=== PATIENT | female | born 1990 | race African-American/Black ===

== ENCOUNTER 2016-11-14 18:29 | Emergency (ER) | payer SELFPAY ==
[2016-11-14] MEDS ORDERED: Benzocaine 20% Topical Spray UD MUCMEM ONE (18:57)
[2016-11-14] MEDS ORDERED: Lidocaine 2% Viscous Solution 15 ML Cup PO ONE (18:57)
[2016-11-14] MEDS ORDERED: Ketorolac 60 MG/2 ML SDV IM ONE (18:58)
--- NOTE | 2016-11-14 19:04 | EDM.PDOC ---
ED HPI GENERAL MEDICAL PROBLEM - General Chief Complaint: General Stated Complaint: TOOTH ACHE Time Seen by Provider: 11/14/16 18:42 Source of Information: Reports: Patient History Limitations: Reports: No Limitations - History of Present Illness INITIAL COMMENTS - FREE TEXT/NARRATIVE: Presents reporting a left lower quadrant dental pain. The patient states that she has an impacted wisdom tooth. She has a dental appointment next week but she is having trouble biting down and chewing due to the pain. No fever or swelling. Left Lower Tooth/Teeth Pain Score (Numeric/FACES): 6 - Related Data Allergies Allergy/AdvReac Type Severity Reaction Status Date / Time No Known Allergies Allergy Verified 11/14/16 18:42 Home Meds: Home Meds . [No Known Home Meds] 11/14/16 [History] Past Medical History - Past Health History Medical/Surgical History: Denies Medical/Surgical History Respiratory History: Reports: Asthma Social & Family History - Family History Family Medical History: Noncontributory - Tobacco Use Smoking Status *Q: Never Smoker Years of Tobacco use: 5 Second Hand Smoke Exposure: No - Caffeine Use Caffeine Use: Reports: Coffee Other Caffeine Use: 1 cup per day - Alcohol Use Days Per Week of Alcohol Use: 1 Number of Drinks Per Day: 3 Total Drinks Per Week: 3 - Recreational Drug Use Recreational Drug Use: No Recreational Drug Type: Reports: Marijuana/Hashish Recreational Drug Use Frequency: Monthly ED ROS GENERAL - Review of Systems Review Of Systems: ROS reveals no pertinent complaints other than HPI. ED EXAM, GENERAL - Physical Exam Exam: See Below Exam Limited By: Uncooperative General Appearance: No Apparent Distress Ears: Normal External Exam Nose: Normal Inspection Throat/Mouth: Other (Pericoronitis tooth #15 or 16) Head: Atraumatic, Normocephalic Neck: Normal Inspection Respiratory/Chest: No Respiratory Distress, Lungs Clear, Normal Breath Sounds Cardiovascular: Normal Peripheral Pulses, Regular Rate, Rhythm, No Murmur GI/Abdominal: Soft Back Exam: Normal Inspection Extremities: Normal Inspection Neurological: Alert, Oriented Psychiatric: Normal Affect, Normal Mood Skin Exam: Warm, Dry, Intact, Normal Color, No Rash Lymphatic: No Adenopathy Course - Vital Signs Last Recorded V/S: Last Vital Signs Temp 36.7 C 11/14/16 18:49 Pulse 94 11/14/16 18:49 Resp 16 05/16/17 18:49 BP 129/89 11/14/16 18:49 Pulse Ox 96 11/14/16 18:49 - Orders/Labs/Meds Orders: Medication Orders Ketorolac Tromethamine (Toradol) 60 mg IM ONETIME ONE Stop: 11/14/16 18:59 Meds: Medications Generic Name Dose Route Start Last Admin Trade Name Freq PRN Reason Stop Dose Admin Ketorolac Tromethamine 60 mg 11/14/16 18:58 Toradol IM 11/14/16 18:59 ONETIME ONE Discontinued Medications Generic Name Dose Route Start Last Admin Trade Name Freq PRN Reason Stop Dose Admin Benzocaine 2 each 11/14/16 18:57 Hurricaine One 20% MUCMEM 11/14/16 18:58 ONETIME ONE Lidocaine HCl 15 ml 11/14/16 18:57 Xylocaine 2% Viscous PO 11/14/16 18:58 ONETIME ONE Departure - Departure Time of Disposition: 19:02 Disposition: Home, Self-Care 01 Condition: good Clinical Impression: Pericoronitis - Discharge Information Forms: ED Department Discharge Additional Instructions: 1. please followup with the dentist as previously scheduled next week 2. take antibiotics as directed 3. dental balls: Placed one ball over affected tooth, bite down and hold for 10 minutes every 2 hours. 4. Aleve 2 tabs a.m. and 2 tabs p.m. or ibuprofen 4-600 mg every 8 hours as needed for pain 5. Hale 5 mg every 4 hours as needed for pain no driving or operating machinery
[2016-11-14 20:12] VITALS: BP 125/80
== END 2016-11-14 19:24 | disposition home or self-care (01) ==
LOC: MW.ED 18:29
DX: K05.30 Chronic periodontitis, unspecified (principal); J45.909 Unspecified asthma, uncomplicated
CPT/HCPCS: 96372; 99283; A9270; J1885

== ENCOUNTER 2017-01-12 08:32 | Emergency (ER) | payer SELFPAY ==
[2017-01-12] MEDS ORDERED: Sodium Chloride 0.9% 1,000 ML IV ONE (08:44)
[2017-01-12] MEDS ORDERED: Ondansetron 4 MG/2 ML SDV IVPUSH ONE (08:44)
--- NOTE | 2017-01-12 08:47 | EDM.PDOC ---
ED HPI GENERAL MEDICAL PROBLEM - General Chief Complaint: Gastrointestinal Problem Stated Complaint: VOMITTING, PAIN IN STOMACH Time Seen by Provider: 01/12/17 08:44 - History of Present Illness INITIAL COMMENTS - FREE TEXT/NARRATIVE: HISTORY AND PHYSICAL: History of present illness: Patient 26-year-old black female presents concern of vomiting diarrhea 1 day she's had no fever no chills she denies abdominal pain denies urinary symptoms are basically for medical screening due to illness that prompted her to leave work. Review of systems: As per history of present illness and below otherwise all systems reviewed and negative. Past medical history: As per history of present illness and as reviewed below otherwise noncontributory. Surgical history: As per history of present illness and as reviewed below otherwise noncontributory. Social history: No reported history of drug or alcohol abuse. Family history: As per history of present illness and as reviewed below otherwise noncontributory. Physical exam: HEENT: Atraumatic, normocephalic, pupils reactive, negative for conjunctival pallor or scleral icterus, mucous membranes dry, throat clear, neck supple, nontender, trachea midline. Lungs: Clear to auscultation, breath sounds equal bilaterally, chest nontender. Heart: S1S2, regular, negative for clicks, rubs, or JVD. Abdomen: Soft, nondistended, nontender. Negative for masses or hepatosplenomegaly. Negative for costovertebral tenderness. Pelvis: Stable nontender. Genitourinary: Deferred. Rectal: Deferred. Extremities: Atraumatic, negative for cords or calf pain. Neurovascular unremarkable. Neuro: Awake, alert, oriented. Cranial nerves II through XII unremarkable. Cerebellum unremarkable. Motor and sensory unremarkable throughout. Exam nonfocal. Diagnostics: CBC CMP lipase hCG Therapeutics: Normal saline 1 L bolus Zofran 4 mg IV Impression: #1 gastroenteritis Definitive disposition and diagnosis as appropriate pending reevaluation and review of above. abdomen Pain Score (Numeric/FACES): 5 - Related Data Allergies Allergy/AdvReac Type Severity Reaction Status Date / Time No Known Allergies Allergy Verified 01/12/17 08:40 Home Meds: Home Meds . [No Known Home Meds] 11/14/16 [History] Past Medical History - Past Health History Medical/Surgical History: Denies Medical/Surgical History Respiratory History: Reports: Asthma Social & Family History - Family History Family Medical History: Noncontributory - Tobacco Use Smoking Status *Q: Never Smoker Years of Tobacco use: 5 Second Hand Smoke Exposure: No - Caffeine Use Caffeine Use: Reports: Coffee Other Caffeine Use: 1 cup per day - Alcohol Use Days Per Week of Alcohol Use: 1 Number of Drinks Per Day: 3 Total Drinks Per Week: 3 - Recreational Drug Use Recreational Drug Use: No Recreational Drug Type: Reports: Marijuana/Hashish Recreational Drug Use Frequency: Monthly ED ROS GENERAL - Review of Systems Review Of Systems: ROS reveals no pertinent complaints other than HPI. ED EXAM, GENERAL - Physical Exam Exam: See Below (See dictation) Course - Vital Signs Last Recorded V/S: Last Vital Signs Temp 36.5 C 01/12/17 08:40 Pulse 77 01/12/17 08:40 Resp 18 01/12/17 08:40 BP 138/88 01/12/17 08:40 Pulse Ox 98 01/12/17 08:40 - Orders/Labs/Meds Orders: Active Orders 24 hr Category Date Time Status CBC WITH AUTO DIFF [HEME] Stat Lab 01/12/17 08:44 Ordered Departure - Departure Time of Disposition: 08:46 Disposition: Home, Self-Care 01 Condition: Good Clinical Impression: Gastroenteritis - Discharge Information Forms: ED Department Discharge Additional Instructions: The following information is given to patients seen in the emergency department who are being discharged to home. This information is to outline your options for follow-up care. We provide all patients seen in our emergency department with a follow-up referral. The need for follow-up, as well as the timing and circumstances, are variable depending upon the specifics of your emergency department visit. If you don't have a primary care physician on staff, we will provide you with a referral. We always advise you to contact your personal physician following an emergency department visit to inform them of the circumstance of the visit and for follow-up with them and/or the need for any referrals to a consulting specialist. The emergency department will also refer you to a specialist when appropriate. This referral assures that you have the opportunity for followup care with a specialist. All of these measure are taken in an effort to provide you with optimal care, which includes your followup. Under all circumstances we always encourage you to contact your private physician who remains a resource for coordinating your care. When calling for followup care, please make the office aware that this follow-up is from your recent emergency room visit. If for any reason you are refused follow-up, please contact the [facility] emergency department at and asked to speak to the emergency department charge nurse. [facility] [place] [id number] Push fluids clear liquids as directed avoid dairy products 72 hours follow-up primary medical doctor and/or clinic 24-48 hours and return as needed as discussed - My Orders Last 24 Hours: My Active Orders 01/12/17 08:44 CBC WITH AUTO DIFF [HEME] Stat - Assessment/Plan Last 24 Hours: My Active Orders 01/12/17 08:44 CBC WITH AUTO DIFF [HEME] Stat
[2017-01-12 09:11] LABS: CHLORIDE,CL 107 mmol/L (98-110); SODIUM,NA 136 mmol/L (136-146)
[2017-01-12 10:16] VITALS: BP 115/45
== END 2017-01-12 10:16 | disposition home or self-care (01) ==
LOC: MW.ED 08:32
DX: K52.9 Noninfective gastroenteritis and colitis, unspecified (principal); J45.909 Unspecified asthma, uncomplicated
CPT/HCPCS: 80053; 81001; 83690; 84703; 85025; 96361; 96374; 99284; J2405; J7040; 99282

== ENCOUNTER 2017-04-27 09:56 | Emergency (ER) | payer MEDICAID ==
[2017-04-27] MEDS ORDERED: Albuterol 0.083% 2.5 MG/3 ML Neb Soln NEB ONE (10:07)
[2017-04-27] MEDS ORDERED: Sodium Chloride 0.9% 1,000 ML IV ONE (10:13)
--- NOTE | 2017-04-27 10:13 | EDM.PDOC ---
ED HPI GENERAL MEDICAL PROBLEM - General Chief Complaint: Chest Pain Stated Complaint: CHEST PAIN Time Seen by Provider: 04/27/17 10:00 Source of Information: Reports: Patient History Limitations: Reports: No Limitations - History of Present Illness INITIAL COMMENTS - FREE TEXT/NARRATIVE: History of present illness: [26-year-old female presenting with complaints of chest pain status post cough 1 week. Patient indicates that she has known asthma and that she feels she's been having a postnasal drip that is making her cough worse.] Review of systems: As per history of present illness and below otherwise all systems reviewed and negative. Past medical history: As per history of present illness and as reviewed below otherwise noncontributory. Surgical history: As per history of present illness and as reviewed below otherwise noncontributory. Social history: No reported history of drug or alcohol abuse. Family history: As per history of present illness and as reviewed below otherwise noncontributory. Physical exam: HEENT: Atraumatic, normocephalic, pupils reactive, negative for conjunctival pallor or scleral icterus, mucous membranes moist with slight oral pharyngeal erythema with juventino postnasal drainage noted, neck supple, nontender, trachea midline. Lungs: Clear to auscultation, breath sounds equal bilaterally, chest nontender. Heart: S1S2, regular, negative for clicks, rubs, or JVD. Abdomen: Soft, nondistended, nontender. Negative for masses or hepatosplenomegaly. Negative for costovertebral tenderness. Pelvis: Stable nontender. Genitourinary: Deferred. Rectal: Deferred. Extremities: Atraumatic, negative for cords or calf pain. Neurovascular unremarkable. Neuro: Awake, alert, oriented. Cranial nerves II through XII unremarkable. Cerebellum unremarkable. Motor and sensory unremarkable throughout. Exam nonfocal. Diagnostics: [Urine, hCG, CBC, CMP, chest x-ray] Therapeutics: [] Impression: [#1 asthma exacerbation acute on chronic #2 cough #3 costochondritis] Plan: [Medrol Dosepak, start for her inhaler, Z-Abner] Definitive disposition and diagnosis as appropriate pending reevaluation and review of above. Middle Chest Pain Score (Numeric/FACES): 5 - Related Data Allergies Allergy/AdvReac Type Severity Reaction Status Date / Time No Known Allergies Allergy Verified 04/27/17 10:00 Home Meds: Home Meds Albuterol Sulfate [Proair Respiclick] 90 mcg PO DAILY 04/27/17 [History] Azithromycin [IJD: Azithromycin] 250 mg PO DAILY #6 tab 04/27/17 [Rx] Budesonide/Formoterol Fumarate [Symbicort 160-4.5 Mcg Inhaler] 10.2 gm PO BID [History] Inhaler, Assist Devices [Space Chamber Plus] 1 each MC ASDIRECTED #1 spacer [Rx] methylPREDNISolone [Medrol] 4 mg PO DAILY #21 tab.ds.pk 04/27/17 [Rx] Past Medical History - Past Health History Medical/Surgical History: Denies Medical/Surgical History HEENT History: Reports: None Cardiovascular History: Reports: None Respiratory History: Reports: Asthma Gastrointestinal History: Reports: None Genitourinary History: Reports: None [employer] History: Reports: 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 History: Reports: None Neurological History: Reports: None Psychiatric History: Reports: None Endocrine/Metabolic History: Reports: None Hematologic History: Reports: None Immunologic History: Reports: None Oncologic (Cancer) History: Reports: None Dermatologic History: Reports: None - Infectious Disease History Infectious Disease History: Reports: Chicken Pox - Past Surgical History Head Surgeries/Procedures: Reports: None HEENT Surgical History: Reports: Adenoidectomy, Tonsillectomy Cardiovascular Surgical History: Reports: None Respiratory Surgical History: Reports: None GI Surgical History: Reports: None Female Surgical History: Reports: None Endocrine Surgical History: Reports: None 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 Surgical History: Reports: None Oncologic Surgical History: Reports: None Dermatological Surgical History: Reports: None Social & Family History - Family History Family Medical History: Noncontributory - Tobacco Use Smoking Status *Q: Never Smoker Years of Tobacco use: 5 Second Hand Smoke Exposure: No - Caffeine Use Caffeine Use: Reports: Coffee Other Caffeine Use: 1 cup per day - Alcohol Use Days Per Week of Alcohol Use: 1 Number of Drinks Per Day: 3 Total Drinks Per Week: 3 - Recreational Drug Use Recreational Drug Use: No Recreational Drug Type: Reports: Marijuana/Hashish Recreational Drug Use Frequency: Monthly ED ROS GENERAL - Review of Systems Review Of Systems: See Below (See history of present illness) ED EXAM, GENERAL - Physical Exam Exam: See Below (See history of present illness) Course - Vital Signs Last Recorded V/S: Last Vital Signs Temp 36.5 C 04/27/17 11:14 Pulse 83 04/27/17 11:14 Resp 18 04/27/17 11:14 BP 114/75 04/27/17 11:14 Pulse Ox 100 04/27/17 11:14 - Orders/Labs/Meds Orders: Active Orders 24 hr Category Date Time Status RT Aerosol Therapy [RC] ASDIRECTED Care 04/27/17 10:08 Active Labs: Laboratory Tests 04/27/17 04/27/17 04/27/17 Range/Units 10:12 10:12 10:30 WBC 8.78 (4.0-11.0) K/uL RBC 4.74 (4.30-5.90) M/uL Hgb 14.4 (12.0-16.0) g/dL Hct 41.8 (36.0-46.0) % MCV 88.2 (80.0-98.0) fL MCH 30.4 (27.0-32.0) pg MCHC 34.4 (31.0-37.0) g/dL RDW Std Deviation 41.8 (28.0-62.0) fl RDW Coeff of Amy 13 (11.0-15.0) % Plt Count 221 (150-400) K/uL MPV 8.90 (7.40-12.00) fL Neut % (Auto) 56.4 (48.0-80.0) % Lymph % (Auto) 32.0 (16.0-40.0) % Mellette % (Auto) 8.5 (0.0-15.0) % Eos % (Auto) 2.6 (0.0-7.0) % Baso % (Auto) 0.5 (0.0-1.5) % Neut # (Auto) 5.0 (1.4-5.7) K/uL Lymph # (Auto) 2.8 H (0.6-2.4) K/uL Mellette # (Auto) 0.8 (0.0-0.8) K/uL Eos # (Auto) 0.2 (0.0-0.7) K/uL Baso # (Auto) 0.0 (0.0-0.1) K/uL Nucleated RBC % 0.0 /100WBC Nucleated RBCs # 0 K/uL Sodium (136-146) mmol/L Potassium (3.5-5.1) mmol/L Chloride (98-110) mmol/L Carbon Dioxide (21-31) mmol/L BUN (6.0-23.0) mg/dL Creatinine (0.6-1.5) mg/dL Est Cr Clr Drug Dosing mL/min Estimated GFR (MDRD) ml/min Glucose (60-110) mg/dL Calcium (8.8-10.8) mg/dL Total Bilirubin (0.1-1.5) mg/dL AST (5-40) IU/L ALT (8-54) IU/L Alkaline Phosphatase (40-150) Total Protein (6.0-8.0) g/dL Albumin (3.5-5.0) g/dL Globulin (2.0-3.5) g/dL Albumin/Globulin Ratio (1.3-2.8) Urine Color YELLOW Urine Appearance CLEAR Urine pH 6.0 (5.0-8.0) Ur Specific [place] 1.025 (1.001-1.035) Urine Protein NEGATIVE (NEGATIVE) mg/dL Urine Glucose (UA) NEGATIVE (NEGATIVE) mg/dL Urine Ketones NEGATIVE (NEGATIVE) mg/dL Urine Occult Blood TRACE-LYSED (NEGATIVE) Urine Nitrite NEGATIVE (NEGATIVE) Urine Bilirubin NEGATIVE (NEGATIVE) Urine Urobilinogen 0.2 (<2.0) EU/dL Ur Leukocyte Esterase NEGATIVE (NEGATIVE) Urine RBC 1-3 (0-2/HPF) Urine WBC 0-1 (0-5/HPF) Ur Epithelial Cells OCCASIONAL (NONE-FEW) Urine Bacteria RARE (NEGATIVE) Urine Mucus MODERATE (NONE-MOD) Urine HCG, Qual NEGATIVE (NEGATIVE) 04/27/17 Range/Units 10:30 WBC (4.0-11.0) K/uL RBC (4.30-5.90) M/uL Hgb (12.0-16.0) g/dL Hct (36.0-46.0) % MCV (80.0-98.0) fL MCH (27.0-32.0) pg MCHC (31.0-37.0) g/dL RDW Std Deviation (28.0-62.0) fl RDW Coeff of Amy (11.0-15.0) % Plt Count (150-400) K/uL MPV (7.40-12.00) fL Neut % (Auto) (48.0-80.0) % Lymph % (Auto) (16.0-40.0) % Mellette % (Auto) (0.0-15.0) % Eos % (Auto) (0.0-7.0) % Baso % (Auto) (0.0-1.5) % Neut # (Auto) (1.4-5.7) K/uL Lymph # (Auto) (0.6-2.4) K/uL Mellette # (Auto) (0.0-0.8) K/uL Eos # (Auto) (0.0-0.7) K/uL Baso # (Auto) (0.0-0.1) K/uL Nucleated RBC % /100WBC Nucleated RBCs # K/uL Sodium 138 (136-146) mmol/L Potassium 4.0 (3.5-5.1) mmol/L Chloride 108 (98-110) mmol/L Carbon Dioxide 21 (21-31) mmol/L BUN 12 (6.0-23.0) mg/dL Creatinine 0.9 (0.6-1.5) mg/dL Est Cr Clr Drug Dosing 74.92 mL/min Estimated GFR (MDRD) > 60.0 ml/min Glucose 98 (60-110) mg/dL Calcium 9.4 (8.8-10.8) mg/dL Total Bilirubin 0.6 (0.1-1.5) mg/dL AST 15 (5-40) IU/L ALT 17 (8-54) IU/L Alkaline Phosphatase 57 (40-150) Total Protein 7.9 (6.0-8.0) g/dL Albumin 4.4 (3.5-5.0) g/dL Globulin 3.5 (2.0-3.5) g/dL Albumin/Globulin Ratio 1.3 (1.3-2.8) Urine Color Urine Appearance Urine pH (5.0-8.0) Ur Specific [place] (1.001-1.035) Urine Protein (NEGATIVE) mg/dL Urine Glucose (UA) (NEGATIVE) mg/dL Urine Ketones (NEGATIVE) mg/dL Urine Occult Blood (NEGATIVE) Urine Nitrite (NEGATIVE) Urine Bilirubin (NEGATIVE) Urine Urobilinogen (<2.0) EU/dL Ur Leukocyte Esterase (NEGATIVE) Urine RBC (0-2/HPF) Urine WBC (0-5/HPF) Ur Epithelial Cells (NONE-FEW) Urine Bacteria (NEGATIVE) Urine Mucus (NONE-MOD) Urine HCG, Qual (NEGATIVE) Meds: Medications Discontinued Medications Generic Name Dose Route Start Last Admin Trade Name Freq PRN Reason Stop Dose Admin Albuterol 2.5 mg 04/27/17 10:07 04/27/17 10:17 Proventil Neb Soln NEB 04/27/17 10:08 2.5 mg ONETIME ONE Administration Sodium Chloride 1,000 mls @ 999 mls/hr 04/27/17 10:13 04/27/17 10:47 Normal Saline IV 04/27/17 11:13 999 mls/hr STAT ONE Administration Departure - Departure Time of Disposition: 11:28 Disposition: Home, Self-Care 01 Condition: Good Clinical Impression: Costochondritis, Asthma Clinical Impression: (Ruled Out): Atypical chest pain - Discharge Information Prescriptions: Azithromycin [IJD: Azithromycin] 250 mg PO DAILY #6 tab Inhaler, Assist Devices [Space Chamber Plus] 1 each MC ASDIRECTED #1 spacer methylPREDNISolone [Medrol] 4 mg PO DAILY #21 tab.ds.pk Forms: ED Department Discharge Additional Instructions: The following information is given to patients seen in the emergency department who are being discharged to home. This information is to outline your options for follow-up care. We provide all patients seen in our emergency department with a follow-up referral. The need for follow-up, as well as the timing and circumstances, are variable depending upon the specifics of your emergency department visit. If you don't have a primary care physician on staff, we will provide you with a referral. We always advise you to contact your personal physician following an emergency department visit to inform them of the circumstance of the visit and for follow-up with them and/or the need for any referrals to a consulting specialist. The emergency department will also refer you to a specialist when appropriate. This referral assures that you have the opportunity for follow-up care with a specialist. All of these measure are taken in an effort to provide you with optimal care, which includes your follow-up. Under all circumstances we always encourage you to contact your private physician who remains a resource for coordinating your care. When calling for follow-up care, please make the office aware that this follow-up is from your recent emergency room visit. If for any reason you are refused follow-up, please contact the [facility] Emergency Department at and asked to speak to the emergency department charge nurse. Take medication as directed Follow-up with PCP 1-2 days and discussed the potential nebulizer Return to ED as needed as discussed - My Orders Last 24 Hours: My Active Orders 04/27/17 10:08 RT Aerosol Therapy [RC] ASDIRECTED - Assessment/Plan Last 24 Hours: My Active Orders 04/27/17 10:08 RT Aerosol Therapy [RC] ASDIRECTED
[2017-04-27 11:02] LABS: CHLORIDE,CL 108 mmol/L (98-110); SODIUM,NA 138 mmol/L (136-146)
--- NOTE | 2017-04-27 11:04 | CR ---
EXAMINATION: Two-view chest (PA and Lateral views). HISTORY: Cough. FINDINGS: The trachea is midline. The cardiomediastinal silhouette is within normal limits. No pulmonary infilt rates, effusions or pneumothorax. Osseous structures appear unremarkable. IMPRESSION: No acute cardiopulmonary process.
[2017-04-27 11:43] VITALS: BP 107/65
== END 2017-04-27 11:45 | disposition home or self-care (01) ==
LOC: MW.ED 09:56
DX: M94.0 Chondrocostal junction syndrome [Tietze] (principal); J45.901 Unspecified asthma with (acute) exacerbation; Z79.899 Other long term (current) drug therapy
CPT/HCPCS: 36415; 71020; 80053; 81001; 81025; 85025; 93005; 94640; 96360; 99285; J7040; 99283

== ENCOUNTER 2017-05-10 23:12 | Emergency (ER) | payer MEDICAID ==
[2017-05-10 23:22] VITALS: BP 123/74
== END 2017-05-10 23:39 | disposition left against medical advice (07) ==
LOC: MW.ED 23:12
DX: Z53.21 Procedure and treatment not carried out due to patient leaving prior to being seen by health care provider (principal)
CPT/HCPCS: 99283

== ENCOUNTER 2017-07-08 16:49 | Emergency (ER) | payer MEDICAID ==
[2017-07-08] MEDS ORDERED: Albuterol/Ipratropium 3.0-0.5 MG/3 ML Neb Soln NEB ONE (17:13)
--- NOTE | 2017-07-08 17:17 | EDM.PDOC ---
ED HPI GENERAL MEDICAL PROBLEM - General Chief Complaint: General Stated Complaint: COUGH,EARACHE Time Seen by Provider: 07/08/17 16:50 Source of Information: Reports: Patient History Limitations: Reports: No Limitations - History of Present Illness INITIAL COMMENTS - FREE TEXT/NARRATIVE: HISTORY AND PHYSICAL: History of present illness: Patient is a 26-year-old female who presents to the emergency room with complaints of cough, fever, sinus congestion and right ear pain 1 week. States she has a history of asthma and normally takes rescue inhaler for her symptoms, states she has been having to take it more frequently and has been using an over -the-counter allergy relief medication. She has not found any relief to his medications. Denies any chest pain, shortness of breath, abdominal pain, nausea, vomiting or diarrhea. Denies any chance of . Has not received the [id number] influenza vaccine. Review of systems: As per history of present illness and below otherwise all systems reviewed and negative. Past medical history: As per history of present illness and as reviewed below otherwise noncontributory. Surgical history: As per history of present illness and as reviewed below otherwise noncontributory. Social history: No reported history of drug or alcohol abuse. Family history: As per history of present illness and as reviewed below otherwise noncontributory. Physical exam: General: Well-developed and well-nourished 26-year-old -[place] female. Alert and oriented. Nontoxic appearing. HEENT: Atraumatic, normocephalic, pupils reactive, negative for conjunctival pallor or scleral icterus, mucous membranes moist, right tympanic membrane is erythematous with mucoid fluid noted behind the TM. Her throat is clear, neck supple, nontender, trachea midline. No drooling or trismus. No meningeal signs. Lungs: Clear to auscultation, breath sounds equal bilaterally, chest nontender.dry nonproductive cough, spastic Heart: S1S2, regular rate and rhythm, no overt murmurs Abdomen: Soft, nondistended, nontender. Negative for masses or hepatosplenomegaly. Negative for costovertebral tenderness. Pelvis: Stable nontender. Genitourinary: Deferred. Rectal: Deferred. Extremities: Atraumatic, negative for cords or calf pain. Neurovascular unremarkable. Neuro: Awake, alert, oriented. Cranial nerves II through XII unremarkable. Cerebellum unremarkable. Motor and sensory unremarkable throughout. Exam nonfocal. Negative influenza. Chest x-ray shows no pneumonia. Will prescribe the patient Augmentin for her ear infection. Medrol Dosepak for her increased cough due to her cold morbidity of asthma. If her symptoms Tylenol with codeine for her increased pain that she is experiencing with the ear pain and cough. Discussed the implications of using this medication. We discussed signs and symptoms that would prompt her to come back to the emergency room immediately. She voiced understanding and will follow up with primary care in the next 1-2 days. She denies any further questions at this time. Diagnostics: Influenza, chest x-ray Therapeutics: Deepali Impression: Otitis media, right Asthma exacerbation Plan: 1. Please take the Augmentin 1 tab twice daily 10 days. Please avoid putting anything in your ear such as Q-tips or fingers. Medrol Dosepak, a steroid, has been prescribed - please take as directed. Tylenol with codeine has been prescribed, this is a narcotic so do not take it when driving or needing to be functioning at work. 2. May continue to use your rescue inhaler as prescribed, along with your routine asthma medications as directed. 3. Follow up with her primary care provider in the next 1-2 days. Return to the ED as needed and as discussed. Definitive disposition and diagnosis as appropriate pending reevaluation and review of above. bilatteral ear Pain Score (Numeric/FACES): 8 - Related Data Allergies Allergy/AdvReac Type Severity Reaction Status Date / Time pineapple Allergy Swelling Verified 07/08/17 17:11 Home Meds: Home Meds Albuterol Sulfate [Proair Respiclick] 90 mcg PO DAILY 04/27/17 [History] Budesonide/Formoterol Fumarate [Symbicort 160-4.5 Mcg Inhaler] 10.2 gm PO BID [History] Cetirizine [ZyrTEC] 10 mg PO DAILY 05/10/17 [History] Fluticasone Propionate [Flonase Allergy Relief] 9.9 ml NS DAILY 05/10/17 [ History] Past Medical History - Past Health History Medical/Surgical History: Denies Medical/Surgical History HEENT History: Reports: None Cardiovascular History: Reports: None Respiratory History: Reports: Asthma Gastrointestinal History: Reports: None Genitourinary History: Reports: 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: 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 History: Reports: None Neurological History: Reports: None Psychiatric History: Reports: None Endocrine/Metabolic History: Reports: None Hematologic History: Reports: None Immunologic History: Reports: None Oncologic (Cancer) History: Reports: None Dermatologic History: Reports: None - Infectious Disease History Infectious Disease History: Reports: Chicken Pox - Past Surgical History Head Surgeries/Procedures: Reports: None HEENT Surgical History: Reports: Adenoidectomy, Tonsillectomy Cardiovascular Surgical History: Reports: None Respiratory Surgical History: Reports: None GI Surgical History: Reports: None Female Surgical History: Reports: None Endocrine Surgical History: Reports: None 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 Surgical History: Reports: None Oncologic Surgical History: Reports: None Dermatological Surgical History: Reports: None Social & Family History - Family History Family Medical History: Noncontributory - Tobacco Use Smoking Status *Q: Never Smoker Years of Tobacco use: 5 Second Hand Smoke Exposure: No - Caffeine Use Caffeine Use: Reports: Coffee, Soda Other Caffeine Use: 1 cup per day - Alcohol Use Days Per Week of Alcohol Use: 1 Number of Drinks Per Day: 3 Total Drinks Per Week: 3 - Recreational Drug Use Recreational Drug Use: No Recreational Drug Type: Reports: Marijuana/Hashish Recreational Drug Use Frequency: Monthly ED ROS GENERAL - Review of Systems Review Of Systems: ROS reveals no pertinent complaints other than HPI. ED EXAM, GENERAL - Physical Exam Exam: See Below (See dictation) Course - Vital Signs Last Recorded V/S: Last Vital Signs Temp 96.3 F 07/08/17 17:11 Pulse 91 07/08/17 17:11 Resp 18 07/08/17 17:11 BP 138/87 07/08/17 17:11 Pulse Ox 99 07/08/17 17:11 - Orders/Labs/Meds Orders: Active Orders 24 hr Category Date Time Status RT Aerosol Therapy [RC] ASDIRECTED Care 07/08/17 17:13 Active Chest 2V [CR] Stat Exams 07/08/17 17:13 Taken Meds: Medications Discontinued Medications Generic Name Dose Route Start Last Admin Trade Name Freq PRN Reason Stop Dose Admin Albuterol/Ipratropium 3 ml 07/08/17 17:13 07/08/17 17:33 Duoneb 3.0-0.5 Mg/3 Ml NEB 01/07/18 17:14 3 ml ONETIME ONE Administration Departure - Departure Time of Disposition: 18:31 Disposition: Home, Self-Care 01 Clinical Impression: Otitis media Qualifiers: Otitis media type: suppurative Chronicity: acute Laterality: right Recurrence: not specified as recurrent Spontaneous tympanic membrane rupture: without spontaneous rupture Qualified Code(s): H66.001 - Acute suppurative otitis media without spontaneous rupture of ear drum, right ear - Discharge Information Referrals: Da Valdes MD [Primary Care Provider] - Forms: ED Department Discharge Additional Instructions: My general discharge The following information is given to patients seen in the emergency department who are being discharged to home. This information is to outline your options for follow-up care. We provide all patients seen in our emergency department with a follow-up referral. The need for follow-up, as well as the timing and circumstances, are variable depending upon the specifics of your emergency department visit. If you don't have a primary care physician on staff, we will provide you with a referral. We always advise you to contact your personal physician following an emergency department visit to inform them of the circumstance of the visit and for follow-up with them and/or the need for any referrals to a consulting specialist. The emergency department will also refer you to a specialist when appropriate. This referral assures that you have the opportunity for follow-up care with a specialist. All of these measure are taken in an effort to provide you with optimal care, which includes your follow-up. Under all circumstances we always encourage you to contact your private physician who remains a resource for coordinating your care. When calling for follow-up care, please make the office aware that this follow-up is from your recent emergency room visit. If for any reason you are refused follow-up, please contact the [facility] Emergency Department at and asked to speak to the emergency department charge nurse. [facility] [address] [place] [id number] 1. Please take the Augmentin 1 tab twice daily 10 days. Please avoid putting anything in your ear such as Q-tips or fingers. Medrol Dosepak, a steroid, has been prescribed - please take as directed. Tylenol with codeine has been prescribed, this is a narcotic so do not take it when driving or needing to be functioning at work. 2. May continue to use your rescue inhaler as prescribed, along with your routine asthma medications as directed. 3. Follow up with her primary care provider in the next 1-2 days. Return to the ED as needed and as discussed. - My Orders Last 24 Hours: My Active Orders 07/08/17 17:13 RT Aerosol Therapy [RC] ASDIRECTED Chest 2V [CR] Stat - Assessment/Plan Last 24 Hours: My Active Orders 07/08/17 17:13 RT Aerosol Therapy [RC] ASDIRECTED Chest 2V [CR] Stat
[2017-07-08] MEDS ORDERED: Acetaminophen/Codeine 120-12 MG/5 ML Soln 5 ML UD Cup PO ONE (18:34)
[2017-07-08] MEDS ORDERED: Amoxicillin/Clavulanate K 875-125 MG Tab PO ONE (18:41)
[2017-07-08 19:25] VITALS: BP 107/78
--- NOTE | 2017-07-09 14:48 | CR ---
EXAM DATE: 07/08/17 PATIENT'S AGE: 26 Patient: BUSHRA FAUSTIN Facility: [place], [place] Site . Site : 1990 Study: XRay Chest [id number]/7/2018 5:59:12 PM Ordering Physician: Doctor Cobos Final Report: Clinical INDICATION: Pain. Shortness of breath. Comparison: 04/27/2017. Findings: The cardiomediastinal silhouette, lung parenchyma, pulmonary vasculature and pleural surfaces are all normal in appearance. The bony thorax appears intact. Impression : Negative study. Dictated by Edgar Moy MD @ Jul 08 2017 6:26PM (Electronic Signature) Report Signed by Proxy. CECELIA
== END 2017-07-08 19:09 | disposition home or self-care (01) ==
LOC: MW.ED 16:49
DX: H66.001 Acute suppurative otitis media without spontaneous rupture of ear drum, right ear (principal); J45.901 Unspecified asthma with (acute) exacerbation; Z79.899 Other long term (current) drug therapy
CPT/HCPCS: 71046; 87804; 94640; 99283; A9270; 99284

== ENCOUNTER 2017-08-24 17:58 | Emergency (ER) | payer MEDICAID ==
--- NOTE | 2017-08-24 18:13 | EDM.PDOC ---
ED HPI GENERAL MEDICAL PROBLEM - General Chief Complaint: Lower Extremity Injury/Pain Stated Complaint: PAIN LT ANKLE Time Seen by Provider: 08/24/17 18:10 Source of Information: Reports: Patient History Limitations: Reports: No Limitations - History of Present Illness INITIAL COMMENTS - FREE TEXT/NARRATIVE: HISTORY AND PHYSICAL: []26-year-old black female presenting with right ankle pain History of Present Illness: []Patient was carrying laundry down stairs, this morning at home, when she got to the landing, she rolled her right ankle and has had increasing pain. Patient did ice her ankle this morning when she rolled it did not take ibuprofen as it has been making her nauseous lately Review of Systems: As per history of present illness and below otherwise all systems reviewed and negative. Past medical history: As per history of present illness and as reviewed below otherwise noncontributory. Surgical history: As per history of present illness and as reviewed below otherwise noncontributory. Social history: No reported history of drug or alcohol abuse. Family history: As per history of present illness and as reviewed below otherwise noncontributory. Physical exam: Alert and oriented female answering questions appropriately. Has a good affect and good eye contact. No shortness of breath when speaking full sentences. HEENT: Atraumatic, normocehpalic, pupils reactive, negative for conjunctival pallor or scleral icterus, mucous membranes moist, throat clear, neck supple, nontender, trachea midline. Lungs: Clear to auscultation, breath sounds equal bilaterally, chest non tender. Heart: S1S2, regular, negative for clicks, rubs, or JVD. Abdomen: Soft, nondistended, nontender. Negative for masses or hepatossplenmegaly. Negative for costovertebral tenderness. Pelvis: Stable nontender. Genitourinary: Deferred. Rectal: Deferred Extremities: Right ankle lateral malleolus with edema and tenderness on palpation. Patient is able to flex and extend her foot but is significantly tender, negative for cords or calf pain. Neurovascular unremarkable. Neuro: Awake, alert, oriented. Cranial nerves II through XII unremarkable. Cerebellum unremarkable. Motor and sensory unremarkable throughout. Exam nonfocal. Patient is improved with the Bao wrap and crutches also Toradol Diagnostics: [X-ray right ankle] Therapeutics: [Bao wrap and crutches] Impression: [Sprain] Plan: [Discharged to home Elevate and ice Crutches for long periods of weightbearing] Definitive disposition and diagnosis as appropriate pending reevaluation and review of above. Onset: Today, Sudden Duration: Hour(s):, Getting Worse Location: Reports: Lower Extremity, Right Quality: Reports: Ache, Stabbing, Throbbing Severity: Moderate Improves with: Reports: None Worsens with: Reports: None Associated Symptoms: Reports: No Other Symptoms Right Ankle Pain Score (Numeric/FACES): 9 - Related Data Allergies Allergy/AdvReac Type Severity Reaction Status Date / Time pineapple Allergy Swelling Verified 08/24/17 18:15 Home Meds: Home Meds Albuterol Sulfate [Proair Respiclick] 90 mcg PO DAILY 04/27/17 [History] Budesonide/Formoterol Fumarate [Symbicort 160-4.5 Mcg Inhaler] 10.2 gm PO BID [History] Cetirizine [ZyrTEC] 10 mg PO DAILY 05/10/17 [History] Fluticasone Propionate [Flonase Allergy Relief] 9.9 ml NS DAILY 05/10/17 [ History] Past Medical History - Past Health History Medical/Surgical History: Denies Medical/Surgical History HEENT History: Reports: None Cardiovascular History: Reports: None Respiratory History: Reports: Asthma Gastrointestinal History: Reports: None Genitourinary History: Reports: 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: Reports: 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 Neurological History: Reports: None Psychiatric History: Reports: None Endocrine/Metabolic History: Reports: None Hematologic History: Reports: None Immunologic History: Reports: None Oncologic (Cancer) History: Reports: None Dermatologic History: Reports: None - Infectious Disease History Infectious Disease History: Reports: Chicken Pox - Past Surgical History Head Surgeries/Procedures: Reports: None HEENT Surgical History: Reports: Adenoidectomy, Tonsillectomy Cardiovascular Surgical History: Reports: None Respiratory Surgical History: Reports: None GI Surgical History: Reports: None Female Surgical History: Reports: None Endocrine Surgical History: Reports: None 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 Surgical History: Reports: None Oncologic Surgical History: Reports: None Dermatological Surgical History: Reports: None Social & Family History - Family History Family Medical History: Noncontributory - Tobacco Use Smoking Status *Q: Never Smoker Years of Tobacco use: 5 Second Hand Smoke Exposure: No - Caffeine Use Caffeine Use: Reports: Coffee, Soda Other Caffeine Use: 1 cup per day - Alcohol Use Days Per Week of Alcohol Use: 1 Number of Drinks Per Day: 3 Total Drinks Per Week: 3 - Recreational Drug Use Recreational Drug Use: No Recreational Drug Type: Reports: Marijuana/Hashish Recreational Drug Use Frequency: Monthly Review of Systems - Review of Systems Review Of Systems: ROS reveals no pertinent complaints other than HPI. ED EXAM, GENERAL - Physical Exam Exam: See Below (see dictation) Course - Vital Signs Last Recorded V/S: Last Vital Signs Temp 36.4 C 08/24/17 18:12 Pulse 81 08/24/17 18:12 Resp 18 08/24/17 18:12 BP 132/59 L 08/24/17 18:12 Pulse Ox 99 08/24/17 18:12 - Orders/Labs/Meds Orders: Active Orders 24 hr Category Date Time Status Ankle Min 3V Rt [CR] Stat Exams 08/24/17 18:10 Taken Meds: Medications Discontinued Medications Generic Name Dose Route Start Last Admin Trade Name Susan PRN Reason Stop Dose Admin Ketorolac Tromethamine 60 mg 08/24/17 18:15 08/24/17 18:45 Toradol IM 08/24/17 18:16 60 mg ONETIME ONE Administration Departure - Departure Time of Disposition: 18:58 Disposition: Home, Self-Care 01 Condition: Good Clinical Impression: Right ankle sprain Qualifiers: Encounter type: initial encounter Involved ligament of ankle: unspecified ligament Qualified Code(s): S93.401A - Sprain of unspecified ligament of right ankle, initial encounter - Discharge Information Instructions: Ankle Sprain Referrals: PCP,None [Primary Care Provider] - Forms: ED Department Discharge Additional Instructions: The following information is given to patients seen in the emergency department who are being discharged to home. This information is to outline your options for follow-up care. We provide all patients seen in our emergency department with a follow-up referral. The need for follow-up, as well as the timing and circumstances, are variable depending upon the specifics of your emergency department visit. If you don't have a primary care physician on staff, we will provide you with a referral. We always advise you to contact your personal physician following an emergency department visit to inform them of the circumstance of the visit and for follow-up with them and/or the need for any referrals to a consulting specialist. The emergency department will also refer you to a specialist when appropriate. This referral assures that you have the opportunity for followup care with a specialist. All of these measure are taken in an effort to provide you with optimal care, which includes your followup. Under all circumstances we always encourage you to contact your private physician who remains a resource for coordinating your care. When calling for followup care, please make the office aware that this follow-up is from your recent emergency room visit. If for any reason you are refused follow-up, please contact the [facility] emergency department at and asked to speak to the emergency department charge nurse. Found to have a sprained to your right ankle Use the Bao wrap and crutches while at work for the next several days Elevate and ice when you don't need to be on it - My Orders Last 24 Hours: My Active Orders 08/24/17 18:10 Ankle Min 3V Rt [CR] Stat - Assessment/Plan Last 24 Hours: My Active Orders 08/24/17 18:10 Ankle Min 3V Rt [CR] Stat
[2017-08-24] MEDS ORDERED: Ketorolac 60 MG/2 ML SDV IM ONE (18:15)
[2017-08-24 19:17] VITALS: BP 117/62
--- NOTE | 2017-08-27 08:48 | CR ---
EXAM DATE: 08/24/17 PATIENT'S AGE: 26 Patient: BUSHRA FAUSTIN Facility: [place], [place] Site . Site : 1990 Study: XRay Extremity Right ANKLE [id number]/23/2018 6:27:04 PM Ordering Physician: Doctor Cobos Final Report: INDICATION: Trauma right ankle; pain. TECHNIQUE: Three view study right ankle. FINDINGS: Soft tissue swelling overlying the lateral malleolus. No evidence of fracture or dislocation. Tibiotalar articulation is unremarkable. IMPRESSION: 1. Soft tissue swelling overlying the lateral malleolus. 2. No evidence of fracture. Dictated by Pee Harrington MD @ Aug 24 2017 6:38PM (Electronic Signature) Report Signed by Proxy. CECELIA
== END 2017-08-24 19:13 | disposition home or self-care (01) ==
LOC: MW.ED 17:58
DX: S93.401A Sprain of unspecified ligament of right ankle, initial encounter (principal); J45.909 Unspecified asthma, uncomplicated; Z72.0 Tobacco use; Z79.899 Other long term (current) drug therapy; Z79.51 Long term (current) use of inhaled steroids; Z91.018 Allergy to other foods; X50.9XXA Other and unspecified overexertion or strenuous movements or postures, initial encounter; Y92.009 Unspecified place in unspecified non-institutional (private) residence as the place of occurrence of the external cause
CPT/HCPCS: 73610; 96372; 99283; J1885

== ENCOUNTER 2017-09-18 08:24 | Emergency (ER) | payer MEDICAID ==
[2017-09-18] MEDS ORDERED: Ondansetron 4 MG/2 ML SDV IVPUSH ONE (08:33)
--- NOTE | 2017-09-18 08:34 | EDM.PDOC ---
ED HPI GENERAL MEDICAL PROBLEM - General Chief Complaint: Gastrointestinal Problem Stated Complaint: VOMITTING Time Seen by Provider: 09/18/17 08:34 Source of Information: Reports: Patient - History of Present Illness INITIAL COMMENTS - FREE TEXT/NARRATIVE: HISTORY AND PHYSICAL: History of present illness: [Patient presents with one episode of vomiting and several loose stools last night during the night she has also had cough she states cough led to the vomiting episode Currently no fever chills sweats no chest pain shortness breath headache dizziness palpitation no urine symptoms Hematuria noted on lab patient is currently menstruating ] Review of systems: As per history of present illness and below otherwise all systems reviewed and negative. Past medical history: As per history of present illness and as reviewed below otherwise noncontributory. Surgical history: As per history of present illness and as reviewed below otherwise noncontributory. Social history: No reported history of drug or alcohol abuse. Family history: As per history of present illness and as reviewed below otherwise noncontributory. Physical exam: HEENT: Atraumatic, normocephalic, pupils reactive, negative for conjunctival pallor or scleral icterus, mucous membranes moist, throat clear, neck supple, nontender, trachea midline. Lungs: Clear to auscultation, breath sounds equal bilaterally, chest nontender. Heart: S1S2, regular, negative for clicks, rubs, or JVD. Abdomen: Soft, nondistended, nontender. Negative for masses or hepatosplenomegaly. Negative for costovertebral tenderness. Pelvis: Stable nontender. Genitourinary: Deferred. Rectal: Deferred. Extremities: Atraumatic, negative for cords or calf pain. Neurovascular unremarkable. Neuro: Awake, alert, oriented. Cranial nerves II through XII unremarkable. Cerebellum unremarkable. Motor and sensory unremarkable throughout. Exam nonfocal. Diagnostics: [CBC CMP UA hCG lipase Chest abdomen flat and upright ] Therapeutics: [LR 1 L Zofran 8 mg IV] Impression: Gastroenteritis Definitive disposition and diagnosis as appropriate pending reevaluation and review of above. - Related Data Allergies Allergy/AdvReac Type Severity Reaction Status Date / Time pineapple Allergy Swelling Verified 08/24/17 18:15 Home Meds: Home Meds Albuterol Sulfate [Proair Respiclick] 90 mcg PO ASDIRECTED 04/27/17 [History] Budesonide/Formoterol Fumarate [Symbicort 160-4.5 Mcg Inhaler] 10.2 gm PO BID [History] Fluticasone Propionate [Flonase Allergy Relief] 9.9 ml NS DAILY 05/10/17 [ History] Loratadine [Claritin] 10 mg PO DAILY 09/18/17 [History] Past Medical History - Past Health History Medical/Surgical History: Denies Medical/Surgical History HEENT History: Reports: None Cardiovascular History: Reports: None Respiratory History: Reports: Asthma Gastrointestinal History: Reports: None Genitourinary History: Reports: None 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: 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 History: Reports: None Neurological History: Reports: None Psychiatric History: Reports: None Endocrine/Metabolic History: Reports: None Hematologic History: Reports: None Immunologic History: Reports: None Oncologic (Cancer) History: Reports: None Dermatologic History: Reports: None - Infectious Disease History Infectious Disease History: Reports: Chicken Pox - Past Surgical History Head Surgeries/Procedures: Reports: None HEENT Surgical History: Reports: Adenoidectomy, Tonsillectomy Cardiovascular Surgical History: Reports: None Respiratory Surgical History: Reports: None GI Surgical History: Reports: None Female Surgical History: Reports: None Endocrine Surgical History: Reports: None 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 Surgical History: Reports: None Oncologic Surgical History: Reports: None Dermatological Surgical History: Reports: None Social & Family History - Family History Family Medical History: Noncontributory - Tobacco Use Smoking Status *Q: Never Smoker Years of Tobacco use: 5 Packs/Tins Daily: 0.1 Second Hand Smoke Exposure: No - Caffeine Use Caffeine Use: Reports: Coffee, Soda Other Caffeine Use: 1 cup per day - Alcohol Use Days Per Week of Alcohol Use: 1 Number of Drinks Per Day: 3 Total Drinks Per Week: 3 - Recreational Drug Use Recreational Drug Use: No Recreational Drug Type: Reports: Marijuana/Hashish Recreational Drug Use Frequency: Monthly ED ROS GENERAL - Review of Systems Review Of Systems: ROS reveals no pertinent complaints other than HPI. ED EXAM, GENERAL - Physical Exam Exam: See Below Course - Vital Signs Last Recorded V/S: Last Vital Signs Temp 98.3 F 09/18/17 08:59 Pulse 67 09/18/17 08:59 Resp 18 09/18/17 08:59 BP 102/58 L 09/18/17 08:59 Pulse Ox 100 09/18/17 08:59 - Orders/Labs/Meds Orders: Active Orders 24 hr Category Date Time Status CULTURE URINE [RM] Stat Lab 09/18/17 08:32 Received Lactated Ringers [Ringers, Lactated] 1,000 ml Med 09/18/17 08:45 Active IV ASDIRECTED Medication Orders Lactated Ringer's (Ringers, Lactated) 1,000 mls @ 999 mls/hr IV ASDIRECTED LISANDRO Last Admin: 09/18/17 08:54 Dose: 999 mls/hr Labs: Laboratory Tests 09/18/17 09/18/17 09/18/17 Range/Units 08:32 08:40 08:40 WBC 8.07 (4.0-11.0) K/uL RBC 4.81 (4.30-5.90) M/uL Hgb 14.6 (12.0-16.0) g/dL Hct 42.0 (36.0-46.0) % MCV 87.3 (80.0-98.0) fL MCH 30.4 (27.0-32.0) pg MCHC 34.8 (31.0-37.0) g/dL RDW Std Deviation 40.3 (28.0-62.0) fl RDW Coeff of Amy 12 (11.0-15.0) % Plt Count 202 (150-400) K/uL MPV 8.70 (7.40-12.00) fL Neut % (Auto) 88.3 H (48.0-80.0) % Lymph % (Auto) 6.4 L (16.0-40.0) % Cooper % (Auto) 4.7 (0.0-15.0) % Eos % (Auto) 0.5 (0.0-7.0) % Baso % (Auto) 0.1 (0.0-1.5) % Neut # (Auto) 7.1 H (1.4-5.7) K/uL Lymph # (Auto) 0.5 L (0.6-2.4) K/uL Cooper # (Auto) 0.4 (0.0-0.8) K/uL Eos # (Auto) 0.0 (0.0-0.7) K/uL Baso # (Auto) 0.0 (0.0-0.1) K/uL Nucleated RBC % 0.0 /100WBC Nucleated RBCs # 0 K/uL Sodium 141 (136-145) mmol/L Potassium 3.8 (3.5-5.1) mmol/L Chloride 106 (98-107) mmol/L Carbon Dioxide 24.7 (21.0-32.0) mmol/L BUN 12 (7.0-18.0) mg/dL Creatinine 0.9 (0.6-1.0) mg/dL Est Cr Clr Drug Dosing 74.92 mL/min Estimated GFR (MDRD) > 60.0 ml/min Glucose 97 (74-106) mg/dL Calcium 8.5 (8.5-10.1) mg/dL Total Bilirubin 0.8 (0.2-1.0) mg/dL AST 14 L (15-37) IU/L ALT 18 (14-63) IU/L Alkaline Phosphatase 45 L (46-116) U/L Total Protein 7.2 (6.4-8.2) g/dL Albumin 3.9 (3.4-5.0) g/dL Globulin 3.3 (2.0-3.5) g/dL Albumin/Globulin Ratio 1.2 L (1.3-2.8) Urine Color YELLOW Urine Appearance CLEAR Urine pH 8.0 (5.0-8.0) Ur Specific [place] 1.015 (1.001-1.035) Urine Protein TRACE (NEGATIVE) mg/dL Urine Glucose (UA) NEGATIVE (NEGATIVE) mg/dL Urine Ketones NEGATIVE (NEGATIVE) mg/dL Urine Occult Blood LARGE H (NEGATIVE) Urine Nitrite NEGATIVE (NEGATIVE) Urine Bilirubin NEGATIVE (NEGATIVE) Urine Urobilinogen 0.2 (<2.0) EU/dL Ur Leukocyte Esterase NEGATIVE (NEGATIVE) Urine RBC 10-12 (0-2/HPF) Urine WBC 0-1 (0-5/HPF) Ur Epithelial Cells RARE (NONE-FEW) Urine Bacteria FEW (NEGATIVE) Urine Mucus LIGHT (NONE-MOD) Urine HCG, Qual (NEGATIVE) 09/18/17 Range/Units 09:00 WBC (4.0-11.0) K/uL RBC (4.30-5.90) M/uL Hgb (12.0-16.0) g/dL Hct (36.0-46.0) % MCV (80.0-98.0) fL MCH (27.0-32.0) pg MCHC (31.0-37.0) g/dL RDW Std Deviation (28.0-62.0) fl RDW Coeff of Amy (11.0-15.0) % Plt Count (150-400) K/uL MPV (7.40-12.00) fL Neut % (Auto) (48.0-80.0) % Lymph % (Auto) (16.0-40.0) % Cooper % (Auto) (0.0-15.0) % Eos % (Auto) (0.0-7.0) % Baso % (Auto) (0.0-1.5) % Neut # (Auto) (1.4-5.7) K/uL Lymph # (Auto) (0.6-2.4) K/uL Cooper # (Auto) (0.0-0.8) K/uL Eos # (Auto) (0.0-0.7) K/uL Baso # (Auto) (0.0-0.1) K/uL Nucleated RBC % /100WBC Nucleated RBCs # K/uL Sodium (136-145) mmol/L Potassium (3.5-5.1) mmol/L Chloride (98-107) mmol/L Carbon Dioxide (21.0-32.0) mmol/L BUN (7.0-18.0) mg/dL Creatinine (0.6-1.0) mg/dL Est Cr Clr Drug Dosing mL/min Estimated GFR (MDRD) ml/min Glucose (74-106) mg/dL Calcium (8.5-10.1) mg/dL Total Bilirubin (0.2-1.0) mg/dL AST (15-37) IU/L ALT (14-63) IU/L Alkaline Phosphatase (46-116) U/L Total Protein (6.4-8.2) g/dL Albumin (3.4-5.0) g/dL Globulin (2.0-3.5) g/dL Albumin/Globulin Ratio (1.3-2.8) Urine Color Urine Appearance Urine pH (5.0-8.0) Ur Specific [place] (1.001-1.035) Urine Protein (NEGATIVE) mg/dL Urine Glucose (UA) (NEGATIVE) mg/dL Urine Ketones (NEGATIVE) mg/dL Urine Occult Blood (NEGATIVE) Urine Nitrite (NEGATIVE) Urine Bilirubin (NEGATIVE) Urine Urobilinogen (<2.0) EU/dL Ur Leukocyte Esterase (NEGATIVE) Urine RBC (0-2/HPF) Urine WBC (0-5/HPF) Ur Epithelial Cells (NONE-FEW) Urine Bacteria (NEGATIVE) Urine Mucus (NONE-MOD) Urine HCG, Qual NEGATIVE (NEGATIVE) Meds: Medications Generic Name Dose Route Start Last Admin Trade Name Freq PRN Reason Stop Dose Admin Lactated Ringer's 1,000 mls @ 999 mls/hr 09/18/17 08:45 09/18/17 08:54 Ringers, Lactated IV 999 mls/hr ASDIRECTED LISANDRO Administration Discontinued Medications Generic Name Dose Route Start Last Admin Trade Name Freq PRN Reason Stop Dose Admin Ondansetron HCl 8 mg 09/18/17 08:33 09/18/17 08:53 Zofran IVPUSH 09/18/17 08:34 8 mg ONETIME ONE Administration Departure - Departure Time of Disposition: 10:45 Disposition: Home, Self-Care 01 Condition: Good Clinical Impression: Gastroenteritis - Discharge Information Referrals: PCP,None [Primary Care Provider] - Forms: ED Department Discharge Additional Instructions: The following information is given to patients seen in the emergency department who are being discharged to home. This information is to outline your options for follow-up care. We provide all patients seen in our emergency department with a follow-up referral. The need for follow-up, as well as the timing and circumstances, are variable depending upon the specifics of your emergency department visit. If you don't have a primary care physician on staff, we will provide you with a referral. We always advise you to contact your personal physician following an emergency department visit to inform them of the circumstance of the visit and for follow-up with them and/or the need for any referrals to a consulting specialist. The emergency department will also refer you to a specialist when appropriate. This referral assures that you have the opportunity for follow-up care with a specialist. All of these measure are taken in an effort to provide you with optimal care, which includes your follow-up. Under all circumstances we always encourage you to contact your private physician who remains a resource for coordinating your care. When calling for follow-up care, please make the office aware that this follow-up is from your recent emergency room visit. If for any reason you are refused follow-up, please contact the [facility] emergency department at and asked to speak to the emergency department charge nurse. - My Orders Last 24 Hours: My Active Orders 09/18/17 08:32 CULTURE URINE [RM] Stat 09/18/17 08:45 Lactated Ringers [Ringers, Lactated] 1,000 ml IV ASDIRECTED - Assessment/Plan Last 24 Hours: My Active Orders 09/18/17 08:32 CULTURE URINE [RM] Stat 09/18/17 08:45 Lactated Ringers [Ringers, Lactated] 1,000 ml IV ASDIRECTED
[2017-09-18] MEDS ORDERED: Lactated Ringers 1,000 ML IV SCH (08:45)
[2017-09-18 09:12] LABS: CHLORIDE,CL 106 mmol/L (98-107); SODIUM,NA 141 mmol/L (136-145)
--- NOTE | 2017-09-18 10:36 | CR ---
EXAMINATION: PA chest and abdomen HISTORY: Pain. FINDINGS: The trachea is midline. The cardiomediastinal silhouette is within normal limits. No pulmonary infilt rates, effusions or pneumothorax. Osseous structures appear unremarkable. There is no free air under the diaphragm. There is a nonobstructive bowel gas pattern. No organomegal y or abnormal calcifications. IMPRESSION: 1. No acute cardiopulmonary process. 2. Unremarkable abdomen.
[2017-09-18 10:57] VITALS: BP 102/68
== END 2017-09-18 10:58 | disposition home or self-care (01) ==
LOC: MW.ED 08:24
DX: K52.9 Noninfective gastroenteritis and colitis, unspecified (principal); J45.909 Unspecified asthma, uncomplicated; Z79.899 Other long term (current) drug therapy
CPT/HCPCS: 36415; 74022; 80053; 81001; 81025; 85025; 87086; 96361; 96374; 99283; J2405; J7120

== ENCOUNTER 2017-10-26 08:56 | Emergency (ER) | payer MEDICAID ==
[2017-10-26 09:19] VITALS: BP 125/91
--- NOTE | 2017-10-26 09:22 | EDM.PDOC ---
ED HPI GENERAL MEDICAL PROBLEM - General Chief Complaint: Lower Extremity Injury/Pain Stated Complaint: RT ANKLE HURTS AND VOMITING Time Seen by Provider: 10/26/17 09:08 - History of Present Illness INITIAL COMMENTS - FREE TEXT/NARRATIVE: HISTORY AND PHYSICAL: History of present illness: Patient is a healthy 27-year-old female who presents from urgent care after she presented for reevaluation of her right ankle for which she was diagnosed with a sprain and is wearing a cam boot, and while she was there she had an episode of vomiting so they thought that she should be evaluated. The patient is not sure why she vomited but she says she feels completely back to normal now and has no nausea no abdominal complaints and denies as she just finished her period. The patient said that she is using ibuprofen for pain and she has had persistent pain but she admits she has been intermittently weightbearing and not using the crutches at all times. She does have a follow-up appointment with orthopedics and is only here at the advice of the urgent care provider. She says that she has no other new complaints or issues. The patient says that she has not had any new trauma or injury to the ankle since her last x-ray at urgent care. Review of systems: As per history of present illness and below otherwise all systems reviewed and negative. Past medical history: As per history of present illness and as reviewed below otherwise noncontributory. Surgical history: As per history of present illness and as reviewed below otherwise noncontributory. Social history: No reported history of drug or alcohol abuse. Family history: As per history of present illness and as reviewed below otherwise noncontributory. Physical exam: HEENT: Atraumatic, normocephalic, negative for conjunctival pallor or scleral icterus, mucous membranes moist, throat clear, neck supple, nontender, trachea midline. Lungs: Clear to auscultation, breath sounds equal bilaterally, chest nontender. Heart: S1S2, regular rate and rhythm no overt murmurs. Abdomen: Soft, nondistended, nontender. NABS Pelvis: Stable nontender. Genitourinary: Deferred. Rectal: Deferred. Extremities: Atraumatic, negative for cords or calf pain. Neurovascular unremarkable. At the right ankle there is some mild tenderness to palpation of the medial and lateral malleoli or areas without any defects deformities ecchymosis erythema warmth or malalignment. There is no crepitus and there are no deformities appreciated in the foot ankle or distal. All other trauma and does have full range of motion. The patient has an ortho boot. Neuro: Awake, alert, oriented. Cranial nerves II through XII unremarkable. Cerebellum unremarkable. Motor and sensory unremarkable throughout. Exam nonfocal. Diagnostics: [] Therapeutics: [] The patient states that she does not feel nauseated and does not want any evaluation for the episode of vomiting but is concerned about the pain. She says she has not had any new trauma since her last evaluation at urgent care and does not feel an x-ray of the ankle is indicated. I will give her a few tramadol to use just as needed and have again stressed the need for no weightbearing Impression: Episode of vomiting prior to admission, resolved, ankle reevaluation Definitive disposition and diagnosis as appropriate pending reevaluation and review of above. - Related Data Allergies Allergy/AdvReac Type Severity Reaction Status Date / Time pineapple Allergy Swelling Verified 08/24/17 18:15 Home Meds: Home Meds Albuterol Sulfate [Proair Respiclick] 90 mcg PO ASDIRECTED 04/27/17 [History] Budesonide/Formoterol Fumarate [Symbicort 160-4.5 Mcg Inhaler] 10.2 gm PO BID [History] Fluticasone Propionate [Flonase Allergy Relief] 9.9 ml NS DAILY 05/10/17 [ History] Loratadine [Claritin] 10 mg PO DAILY 09/18/17 [History] Past Medical History - Past Health History Medical/Surgical History: Denies Medical/Surgical History HEENT History: Reports: None Cardiovascular History: Reports: None Respiratory History: Reports: Asthma Gastrointestinal History: Reports: None Genitourinary History: Reports: None [employer]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: 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 History: Reports: None Neurological History: Reports: None Psychiatric History: Reports: None Endocrine/Metabolic History: Reports: None Hematologic History: Reports: None Immunologic History: Reports: None Oncologic (Cancer) History: Reports: None Dermatologic History: Reports: None - Infectious Disease History Infectious Disease History: Reports: Chicken Pox - Past Surgical History Head Surgeries/Procedures: Reports: None HEENT Surgical History: Reports: Adenoidectomy, Tonsillectomy Cardiovascular Surgical History: Reports: None Respiratory Surgical History: Reports: None GI Surgical History: Reports: None Female Surgical History: Reports: None Endocrine Surgical History: Reports: None 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 Surgical History: Reports: None Oncologic Surgical History: Reports: None Dermatological Surgical History: Reports: None Social & Family History - Family History Family Medical History: Noncontributory - Tobacco Use Smoking Status *Q: Never Smoker Years of Tobacco use: 5 Packs/Tins Daily: 0.1 Used Tobacco, but Quit: Yes Month/Year Tobacco Last Used: 07/2015 Second Hand Smoke Exposure: No - Caffeine Use Caffeine Use: Reports: Coffee, Soda Other Caffeine Use: 1 cup per day - Alcohol Use Days Per Week of Alcohol Use: 1 Number of Drinks Per Day: 3 Total Drinks Per Week: 3 - Recreational Drug Use Recreational Drug Use: No Recreational Drug Type: Reports: Marijuana/Hashish Recreational Drug Use Frequency: Monthly Review of Systems - Review of Systems Review Of Systems: ROS reveals no pertinent complaints other than HPI. ED EXAM, GENERAL - Physical Exam Exam: See Below (See dictation) Departure - Departure Time of Disposition: 09:21 Disposition: Home, Self-Care 01 Condition: Good Clinical Impression: Vomiting - Discharge Information Referrals: PCP,None [Primary Care Provider] - Additional Instructions: The following information is given to patients seen in the emergency department who are being discharged to home. This information is to outline your options for follow-up care. We provide all patients seen in our emergency department with a follow-up referral. The need for follow-up, as well as the timing and circumstances, are variable depending upon the specifics of your emergency department visit. If you don't have a primary care physician on staff, we will provide you with a referral. We always advise you to contact your personal physician following an emergency department visit to inform them of the circumstance of the visit and for follow-up with them and/or the need for any referrals to a consulting specialist. The emergency department will also refer you to a specialist when appropriate. This referral assures that you have the opportunity for followup care with a specialist. All of these measure are taken in an effort to provide you with optimal care, which includes your followup. Under all circumstances we always encourage you to contact your private physician who remains a resource for coordinating your care. When calling for followup care, please make the office aware that this follow-up is from your recent emergency room visit. If for any reason you are refused follow-up, please contact the [facility] emergency department at and ask to speak to the emergency department charge nurse. [facility]--Orthopedic clinic Professional [address] [address] Ice and elevate the area and continue to use ibuprofen/Motrin for pain during the day and use the tramadol you have been given only at nighttime. Please use her crutches and do not weight-bear on the leg until you're seen by orthopedics. Return to ER as needed and as discussed
== END 2017-10-26 09:38 | disposition home or self-care (01) ==
LOC: MW.ED 08:56
DX: R11.10 Vomiting, unspecified (principal); Z91.018 Allergy to other foods; Z79.899 Other long term (current) drug therapy; Z87.891 Personal history of nicotine dependence
CPT/HCPCS: 99283

== ENCOUNTER 2017-12-20 17:17 | Emergency (ER) | payer MEDICAID ==
--- NOTE | 2017-12-20 20:31 | EDM.PDOC ---
ED HPI GENERAL MEDICAL PROBLEM - General Chief Complaint: Abdominal Pain Stated Complaint: STOMACH HURTS Time Seen by Provider: 12/20/17 20:10 Source of Information: Reports: Patient History Limitations: Reports: No Limitations - History of Present Illness INITIAL COMMENTS - FREE TEXT/NARRATIVE: HISTORY AND PHYSICAL: History of present illness: 27-year-old female presenting months department with chief complaint of nausea vomiting and diarrhea 2 days. Patient states that for the past 2 days she's had intermittent episodes of nausea and vomiting with continuous liquidy bowel movements. Having proximally 4 -6 loose stools a day. States that thought she was doing well however has been unable to keep any fluids down today and was feeling somewhat lightheaded so came to emergency department for further evaluation. States that she has not had her menstrual cycle this month so is unsure if she could be . She denies any blood in the stool, dark tarry stools, or hemoptysis. Patient has no medical allergies and takes no normal medications. She denies any abdominal pain and states her symptoms are limited to nausea and vomiting with diarrhea. She denies any fevers, chest pain, palpitations, shortness of breath, syncopal episodes, or focal neurologic deficits. Review of systems: As per history of present illness and below otherwise all systems reviewed and negative. Past medical history: As per history of present illness and as reviewed below otherwise noncontributory. Surgical history: As per history of present illness and as reviewed below otherwise noncontributory. Social history: No reported history of drug or alcohol abuse. Family history: As per history of present illness and as reviewed below otherwise noncontributory. Physical exam: HEENT: Atraumatic, normocephalic, pupils reactive, negative for conjunctival pallor or scleral icterus, mucous membranes moist, throat clear, neck supple, nontender, trachea midline. Lungs: Clear to auscultation, breath sounds equal bilaterally, chest nontender. Heart: S1S2, regular, negative for clicks, rubs, or JVD. Abdomen: Soft, nondistended, nontender. Negative for masses or hepatosplenomegaly. Negative for costovertebral tenderness. Pelvis: Stable nontender. Genitourinary: Deferred. Rectal: Deferred. Extremities: Atraumatic, negative for cords or calf pain. Neurovascular unremarkable. Neuro: Awake, alert, oriented. Cranial nerves II through XII unremarkable. Cerebellum unremarkable. Motor and sensory unremarkable throughout. Exam nonfocal. Diagnostics: CBC, CMP,UA, HCG Therapeutics: 1 L LR 1, Zofran IV 8 mg 1 Impression: Newly diagnosed Nausea and vomiting Diarrhea Mild dehydration Suspect viral gastroenteritis Plan: Patient was found to be early with last known menstrual period of November 09 making her 5 weeks 6 days. This was communicated to the patient she is thus currently . She most likely has a combination of viral gastroenteritis as well as early related nausea and vomiting. Patient improved dramatically with 1 L LR as well as Zofran 8 mg IV. All other labs were unremarkable. She was discharged in good addition with a prescription for Diclogis to be taken for her nausea and vomiting. 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 She was told to return to emergency department if she had any new or worsening symptoms. - Related Data Allergies Allergy/AdvReac Type Severity Reaction Status Date / Time pineapple Allergy Swelling Verified 08/24/17 18:15 Home Meds: Home Meds . 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: 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 History: Reports: None Neurological History: Reports: None Psychiatric History: Reports: None Endocrine/Metabolic History: Reports: None Hematologic History: Reports: None Immunologic History: Reports: None Oncologic (Cancer) History: Reports: None Dermatologic History: Reports: None - Infectious Disease History Infectious Disease History: Reports: Chicken Pox - Past Surgical History Head Surgeries/Procedures: Reports: None HEENT Surgical History: Reports: Adenoidectomy, Tonsillectomy Cardiovascular Surgical History: Reports: None Respiratory Surgical History: Reports: None GI Surgical History: Reports: None Female Surgical History: Reports: None Endocrine Surgical History: Reports: None 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 Surgical History: Reports: None Oncologic Surgical History: Reports: None Dermatological Surgical History: Reports: None Social & Family History - Family History Family Medical History: Noncontributory - Tobacco Use Smoking Status *Q: Former Smoker Used Tobacco, but Quit: Yes Month/Year Tobacco Last Used: 1 year ago - Caffeine Use Caffeine Use: Reports: Coffee, Energy Drinks Other Caffeine Use: 1 cup per day - Recreational Drug Use Recreational Drug Use: No ED ROS GENERAL - Review of Systems Review Of Systems: ROS reveals no pertinent complaints other than HPI. ED EXAM, GENERAL - Physical Exam Exam: See Below Course - Orders/Labs/Meds Orders: Active Orders 24 hr Category Date Time Status UA W/MICROSCOPIC [URIN] Stat Lab 12/20/17 19:09 Ordered Lactated Ringers [Ringers, Lactated] 1,000 ml Med 12/20/17 21:33 Active IV .BOLUS Medication Orders Lactated Ringer's (Ringers, Lactated) 1,000 mls @ 999 mls/hr IV .BOLUS ONE Stop: 12/20/17 22:33 Labs: Laboratory Tests 12/20/17 12/20/17 12/20/17 Range/Units 19:09 19:10 19:25 WBC 8.88 (4.0-11.0) K/uL RBC 4.26 L (4.30-5.90) M/uL Hgb 13.0 (12.0-16.0) g/dL Hct 36.6 (36.0-46.0) % MCV 85.9 (80.0-98.0) fL MCH 30.5 (27.0-32.0) pg MCHC 35.5 (31.0-37.0) g/dL RDW Std Deviation 35.5 (28.0-62.0) fl RDW Coeff of Amy 12 (11.0-15.0) % Plt Count 227 (150-400) K/uL MPV 8.40 (7.40-12.00) fL Neut % (Auto) 50.7 (48.0-80.0) % Lymph % (Auto) 33.1 (16.0-40.0) % Rich % (Auto) 13.6 (0.0-15.0) % Eos % (Auto) 2.4 (0.0-7.0) % Baso % (Auto) 0.2 (0.0-1.5) % Neut # (Auto) 4.5 (1.4-5.7) K/uL Lymph # (Auto) 2.9 H (0.6-2.4) K/uL Rich # (Auto) 1.2 H (0.0-0.8) K/uL Eos # (Auto) 0.2 (0.0-0.7) K/uL Baso # (Auto) 0.0 (0.0-0.1) K/uL Sodium (136-145) mmol/L Potassium (3.5-5.1) mmol/L Chloride (98-107) mmol/L Carbon Dioxide (21.0-32.0) mmol/L BUN (7.0-18.0) mg/dL Creatinine (0.6-1.0) mg/dL Est Cr Clr Drug Dosing mL/min Estimated GFR (MDRD) ml/min Glucose (74-106) mg/dL Calcium (8.5-10.1) mg/dL Total Bilirubin (0.2-1.0) mg/dL AST (15-37) IU/L ALT (14-63) IU/L Alkaline Phosphatase (46-116) U/L Total Protein (6.4-8.2) g/dL Albumin (3.4-5.0) g/dL Globulin (2.0-3.5) g/dL Albumin/Globulin Ratio (1.3-2.8) HCG, Qual (NEG) Urine Color YELLOW Urine Appearance CLEAR Urine pH 6.0 (5.0-8.0) Ur Specific [place] 1.015 (1.001-1.035) Urine Protein NEGATIVE (NEGATIVE) mg/dL Urine Glucose (UA) NEGATIVE (NEGATIVE) mg/dL Urine Ketones TRACE H (NEGATIVE) mg/dL Urine Occult Blood NEGATIVE (NEGATIVE) Urine Nitrite NEGATIVE (NEGATIVE) Urine Bilirubin NEGATIVE (NEGATIVE) Urine Urobilinogen 1.0 (<2.0) EU/dL Ur Leukocyte Esterase NEGATIVE (NEGATIVE) Urine RBC NONE SEEN (0-2/HPF) Urine WBC 0-1 (0-5/HPF) Ur Epithelial Cells MODERATE (NONE-FEW) Amorphous Sediment FEW (NEGATIVE) Urine Bacteria FEW (NEGATIVE) Urine HCG, Qual POSITIVE (NEGATIVE) 12/20/17 12/20/17 Range/Units 19:26 19:45 WBC (4.0-11.0) K/uL RBC (4.30-5.90) M/uL Hgb (12.0-16.0) g/dL Hct (36.0-46.0) % MCV (80.0-98.0) fL MCH (27.0-32.0) pg MCHC (31.0-37.0) g/dL RDW Std Deviation (28.0-62.0) fl RDW Coeff of Amy (11.0-15.0) % Plt Count (150-400) K/uL MPV (7.40-12.00) fL Neut % (Auto) (48.0-80.0) % Lymph % (Auto) (16.0-40.0) % Rich % (Auto) (0.0-15.0) % Eos % (Auto) (0.0-7.0) % Baso % (Auto) (0.0-1.5) % Neut # (Auto) (1.4-5.7) K/uL Lymph # (Auto) (0.6-2.4) K/uL Rich # (Auto) (0.0-0.8) K/uL Eos # (Auto) (0.0-0.7) K/uL Baso # (Auto) (0.0-0.1) K/uL Sodium 136 (136-145) mmol/L Potassium 3.6 (3.5-5.1) mmol/L Chloride 102 (98-107) mmol/L Carbon Dioxide 25.4 (21.0-32.0) mmol/L BUN 10 (7.0-18.0) mg/dL Creatinine 0.8 (0.6-1.0) mg/dL Est Cr Clr Drug Dosing 98.88 mL/min Estimated GFR (MDRD) > 60.0 ml/min Glucose 86 (74-106) mg/dL Calcium 8.5 (8.5-10.1) mg/dL Total Bilirubin 0.7 (0.2-1.0) mg/dL AST 12 L (15-37) IU/L ALT 16 (14-63) IU/L Alkaline Phosphatase 39 L (46-116) U/L Total Protein 7.0 (6.4-8.2) g/dL Albumin 3.8 (3.4-5.0) g/dL Globulin 3.2 (2.0-3.5) g/dL Albumin/Globulin Ratio 1.2 L (1.3-2.8) HCG, Qual POSITIVE H (NEG) Urine Color Urine Appearance Urine pH (5.0-8.0) Ur Specific [place] (1.001-1.035) Urine Protein (NEGATIVE) mg/dL Urine Glucose (UA) (NEGATIVE) mg/dL Urine Ketones (NEGATIVE) mg/dL Urine Occult Blood (NEGATIVE) Urine Nitrite (NEGATIVE) Urine Bilirubin (NEGATIVE) Urine Urobilinogen (<2.0) EU/dL Ur Leukocyte Esterase (NEGATIVE) Urine RBC (0-2/HPF) Urine WBC (0-5/HPF) Ur Epithelial Cells (NONE-FEW) Amorphous Sediment (NEGATIVE) Urine Bacteria (NEGATIVE) Urine HCG, Qual (NEGATIVE) Meds: Medications Generic Name Dose Route Start Last Admin Trade Name Freq PRN Reason Stop Dose Admin Lactated Ringer's 1,000 mls @ 999 mls/hr 12/20/17 21:33 Ringers, Lactated IV 12/20/17 22:33 .BOLUS ONE Departure - Departure Time of Disposition: 21:38 Disposition: Home, Self-Care 01 Condition: Good Clinical Impression: and not yet delivered in first trimester, Viral gastroenteritis - Discharge Information Referrals: PCP,None [Primary Care Provider] - Forms: ED Department Discharge Additional Instructions: My general discharge The following information is given to patients seen in the emergency department who are being discharged to home. This information is to outline your options for follow-up care. We provide all patients seen in our emergency department with a follow-up referral. The need for follow-up, as well as the timing and circumstances, are variable depending upon the specifics of your emergency department visit. If you don't have a primary care physician on staff, we will provide you with a referral. We always advise you to contact your personal physician following an emergency department visit to inform them of the circumstance of the visit and for follow-up with them and/or the need for any referrals to a consulting specialist. The emergency department will also refer you to a specialist when appropriate. This referral assures that you have the opportunity for follow-up care with a specialist. All of these measure are taken in an effort to provide you with optimal care, which includes your follow-up. Under all circumstances we always encourage you to contact your private physician who remains a resource for coordinating your care. When calling for follow-up care, please make the office aware that this follow-up is from your recent emergency room visit. If for any reason you are refused follow-up, please contact the [facility] Emergency Department at and asked to speak to the emergency department charge nurse. [facility] [address] [place] [address] Please call above number for [facility] and tell them that he was seen in emergency department and newly confirmed . Take medications as prescribed. Continue to push fluids. Return emergency department if any new or worsening symptoms. - My Orders Last 24 Hours: My Active Orders 12/20/17 21:33 Lactated Ringers [Ringers, Lactated] 1,000 ml IV .BOLUS - Assessment/Plan Last 24 Hours: My Active Orders 12/20/17 21:33 Lactated Ringers [Ringers, Lactated] 1,000 ml IV .BOLUS
[2017-12-20 20:55] LABS: CHLORIDE,CL 102 mmol/L (98-107); SODIUM,NA 136 mmol/L (136-145)
[2017-12-20] MEDS ORDERED: Lactated Ringers 1,000 ML IV ONE (21:33)
[2017-12-20 22:14] VITALS: BP 118/77
== END 2017-12-20 22:15 | disposition home or self-care (01) ==
LOC: MW.ED 17:17
DX: A08.4 Viral intestinal infection, unspecified (principal); Z33.1 Pregnant state, incidental; Z87.891 Personal history of nicotine dependence; Z91.018 Allergy to other foods
CPT/HCPCS: 36415; 80053; 81001; 81025; 84703; 85025; 96365; 99284; J7120

== ENCOUNTER 2018-01-03 15:52 | Emergency (ER) | payer MEDICAID ==
[2018-01-03] MEDS ORDERED: Sodium Chloride 0.9% 1,000 ML IV ONE (15:57)
[2018-01-03] MEDS ORDERED: Ondansetron 4 MG/2 ML SDV IVPUSH ONE (15:57)
[2018-01-03 16:30] VITALS: BP 105/61
--- NOTE | 2018-01-03 16:58 | EDM.PDOC ---
ED HPI GENERAL MEDICAL PROBLEM - General Chief Complaint: Abdominal Pain Stated Complaint: NAUSEA, STOMACH CRAMPS Time Seen by Provider: 01/03/18 16:58 Source of Information: Reports: Patient - History of Present Illness INITIAL COMMENTS - FREE TEXT/NARRATIVE: HISTORY AND PHYSICAL: History of present illness: [Patient presents with history of diagnosed a couple of weeks prior LMP November 09, 2017, presents with vomiting and mild abdominal cramp she rates 2 out of 10 no low back pain fluid leakage spotting or bleeding no vaginal discharge no fever chills sweats] Review of systems: As per history of present illness and below otherwise all systems reviewed and negative. Past medical history: As per history of present illness and as reviewed below otherwise noncontributory. Surgical history: As per history of present illness and as reviewed below otherwise noncontributory. Social history: No reported history of drug or alcohol abuse. Family history: As per history of present illness and as reviewed below otherwise noncontributory. Physical exam: HEENT: Atraumatic, normocephalic, pupils reactive, negative for conjunctival pallor or scleral icterus, mucous membranes moist, throat clear, neck supple, nontender, trachea midline. Lungs: Clear to auscultation, breath sounds equal bilaterally, chest nontender. Heart: S1S2, regular, negative for clicks, rubs, or JVD. Abdomen: Soft, nondistended, nontender. Negative for masses or hepatosplenomegaly. Negative for costovertebral tenderness. Pelvis: Stable nontender. Genitourinary: Deferred. Rectal: Deferred. Extremities: Atraumatic, negative for cords or calf pain. Neurovascular unremarkable. Neuro: Awake, alert, oriented. Cranial nerves II through XII unremarkable. Cerebellum unremarkable. Motor and sensory unremarkable throughout. Exam nonfocal. Diagnostics: [CBC CMP UA ] Therapeutics: [Liter normal saline bolus Zofran 8 mg Zofran ] Impression: [Vomiting in LMP November 03, 2017 7 weeks 6/7 by dates] Definitive disposition and diagnosis as appropriate pending reevaluation and review of above. - Related Data Allergies Allergy/AdvReac Type Severity Reaction Status Date / Time pineapple Allergy Swelling Verified 01/03/18 17:16 Home Meds: Home Meds Albuterol [Ventolin HFA] 1 - 2 puff INH ASDIRECTED 01/03/18 [History] Budesonide/Formoterol Fumarate [Symbicort 160-4.5 Mcg Inhaler] 2 puff INH DAILY 01/03/18 [History] Fluticasone Propionate [Flonase] 1 spray NASBOTH DAILY 01/03/18 [History] Past Medical History - Past Health History Medical/Surgical History: Denies Medical/Surgical History HEENT History: Reports: None Cardiovascular History: Reports: None Respiratory History: Reports: Asthma Gastrointestinal History: Reports: None Genitourinary History: Reports: None 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: 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 History: Reports: None Neurological History: Reports: None Psychiatric History: Reports: None Endocrine/Metabolic History: Reports: None Hematologic History: Reports: None Immunologic History: Reports: None Oncologic (Cancer) History: Reports: None Dermatologic History: Reports: None - Infectious Disease History Infectious Disease History: Reports: Chicken Pox - Past Surgical History Head Surgeries/Procedures: Reports: None HEENT Surgical History: Reports: Adenoidectomy, Tonsillectomy Cardiovascular Surgical History: Reports: None Respiratory Surgical History: Reports: None GI Surgical History: Reports: None Female Surgical History: Reports: None Endocrine Surgical History: Reports: None 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 Surgical History: Reports: None Oncologic Surgical History: Reports: None Dermatological Surgical History: Reports: None Social & Family History - Family History Family Medical History: Noncontributory - Caffeine Use Caffeine Use: Reports: Coffee, Energy Drinks Other Caffeine Use: 1 cup per day ED ROS GENERAL - Review of Systems Review Of Systems: See Below ED EXAM, GENERAL - Physical Exam Exam: See Below Course - Vital Signs Last Recorded V/S: Last Vital Signs Temp 98.1 F 01/03/18 16:19 Pulse 63 01/03/18 16:19 Resp 18 01/03/18 16:19 BP 105/61 01/03/18 16:19 Pulse Ox 100 01/03/18 16:19 - Orders/Labs/Meds Orders: Active Orders 24 hr Category Date Time Status UA W/MICROSCOPIC [URIN] Stat Lab 01/03/18 15:57 Ordered Labs: Laboratory Tests 01/03/18 01/03/18 01/03/18 Range/Units 16:30 16:30 16:58 WBC 9.98 (4.0-11.0) K/uL RBC 4.26 L (4.30-5.90) M/uL Hgb 12.9 (12.0-16.0) g/dL Hct 36.5 (36.0-46.0) % MCV 85.7 (80.0-98.0) fL MCH 30.3 (27.0-32.0) pg MCHC 35.3 (31.0-37.0) g/dL RDW Std Deviation 38.5 (28.0-62.0) fl RDW Coeff of Amy 12 (11.0-15.0) % Plt Count 195 (150-400) K/uL MPV 8.60 (7.40-12.00) fL Neut % (Auto) 73.9 (48.0-80.0) % Lymph % (Auto) 15.9 L (16.0-40.0) % [place] % (Auto) 9.0 (0.0-15.0) % Eos % (Auto) 1.0 (0.0-7.0) % Baso % (Auto) 0.2 (0.0-1.5) % Neut # (Auto) 7.4 H (1.4-5.7) K/uL Lymph # (Auto) 1.6 (0.6-2.4) K/uL [place] # (Auto) 0.9 H (0.0-0.8) K/uL Eos # (Auto) 0.1 (0.0-0.7) K/uL Baso # (Auto) 0.0 (0.0-0.1) K/uL Nucleated RBC % 0.0 /100WBC Nucleated RBCs # 0 K/uL Sodium 135 L (136-145) mmol/L Potassium 3.7 (3.5-5.1) mmol/L Chloride 103 (98-107) mmol/L Carbon Dioxide 25.5 (21.0-32.0) mmol/L BUN 6 L (7.0-18.0) mg/dL Creatinine 0.7 (0.6-1.0) mg/dL Est Cr Clr Drug Dosing TNP Estimated GFR (MDRD) > 60.0 ml/min Glucose 82 (74-106) mg/dL Calcium 8.5 (8.5-10.1) mg/dL Total Bilirubin 0.6 (0.2-1.0) mg/dL AST 12 L (15-37) IU/L ALT 20 (14-63) IU/L Alkaline Phosphatase 33 L (46-116) U/L Total Protein 6.9 (6.4-8.2) g/dL Albumin 3.5 (3.4-5.0) g/dL Globulin 3.4 (2.0-3.5) g/dL Albumin/Globulin Ratio 1.0 L (1.3-2.8) HCG, Quant 289351.0 mIU/mL Meds: Medications Discontinued Medications Generic Name Dose Route Start Last Admin Trade Name Susan PRN Reason Stop Dose Admin Sodium Chloride 1,000 mls @ 999 mls/hr 01/03/18 15:57 01/03/18 17:06 Normal Saline IV 01/03/18 16:57 999 mls/hr STAT ONE Administration Ondansetron HCl 8 mg 01/03/18 15:57 01/03/18 17:06 Zofran IVPUSH 01/03/18 15:58 8 mg ONETIME ONE Administration Departure - Departure Time of Disposition: 18:32 Disposition: Home, Self-Care 01 Condition: Good Clinical Impression: Vomiting during - Discharge Information Referrals: Lynne Cruz 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 This information is to outline your options for follow-up care. We provide all patients seen in our emergency department with a follow-up referral. The need for follow-up, as well as the timing and circumstances, are variable depending upon the specifics of your emergency department visit. If you don't have a primary care physician on staff, we will provide you with a referral. We always advise you to contact your personal physician following an emergency department visit to inform them of the circumstance of the visit and for follow-up with them and/or the need for any referrals to a consulting specialist. The emergency department will also refer you to a specialist when appropriate. This referral assures that you have the opportunity for follow-up care with a specialist. All of these measure are taken in an effort to provide you with optimal care, which includes your follow-up. Under all circumstances we always encourage you to contact your private physician who remains a resource for coordinating your care. When calling for follow-up care, please make the office aware that this follow-up is from your recent emergency room visit. If for any reason you are refused follow-up, please contact the [facility] emergency department at and asked to speak to the emergency department charge nurse. - My Orders Last 24 Hours: My Active Orders 01/03/18 15:57 UA W/MICROSCOPIC [URIN] Stat - Assessment/Plan Last 24 Hours: My Active Orders 01/03/18 15:57 UA W/MICROSCOPIC [URIN] Stat
[2018-01-03 17:15] LABS: CHLORIDE,CL 103 mmol/L (98-107); SODIUM,NA 135 mmol/L (136-145)
== END 2018-01-03 18:43 | disposition home or self-care (01) ==
LOC: MW.ED 15:52
DX: O21.9 Vomiting of pregnancy, unspecified (principal); Z91.018 Allergy to other foods; J45.909 Unspecified asthma, uncomplicated; Z3A.01 Less than 8 weeks gestation of pregnancy
CPT/HCPCS: 36415; 80053; 84702; 85025; 96361; 96374; 99284; J2405; J7040

== ENCOUNTER 2018-01-14 15:02 | Emergency (ER) | payer MEDICAID ==
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
[2018-01-14 17:52] VITALS: BP 101/72
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
== END 2018-01-14 17:49 | disposition home or self-care (01) ==
LOC: MW.ED 15:02
DX: O30.001 Twin pregnancy, unspecified number of placenta and unspecified number of amniotic sacs, first trimester (principal); O99.511 Diseases of the respiratory system complicating pregnancy, first trimester; J45.909 Unspecified asthma, uncomplicated; Z79.899 Other long term (current) drug therapy; Z91.018 Allergy to other foods
CPT/HCPCS: 36415; 76817; 76817-26; 81001; 84702; 86900; 86901; 99283; 99284-25

== ENCOUNTER 2018-03-06 20:23 | Emergency (ER) | payer MEDICAID ==
--- NOTE | 2018-03-06 20:47 | EDM.PDOC ---
ED HPI GENERAL MEDICAL PROBLEM - General Source of Information: Reports: Patient History Limitations: Reports: No Limitations no pain Pain Score (Numeric/FACES): 0 <Anthony Mccallum - Last Filed: 03/06/18 21:20> - General Source of Information: Reports: Patient History Limitations: Reports: No Limitations <Erasto Grimes - Last Filed: 03/06/18 22:44> - General Chief Complaint: STENO TYPIST Problem Stated Complaint: PT 16 WKS AND BLEEDING Time Seen by Provider: 03/06/18 20:37 - History of Present Illness INITIAL COMMENTS - FREE TEXT/NARRATIVE: HISTORY AND PHYSICAL: History of present illness: Patient is a 27-year-old female who presents to the emergency room with complaints of vaginal bleeding during . Patient is currently 16 weeks with twins. She routinely sees Dr. Garnica for her OBGYN care. States last night she started having abdominal cramping. Woke up this morning without any abdominal pain or cramping but did have moderate vaginal bleeding. She denies any recent pelvic activity. Denies any fever, chills, chest pain or cough. Denies any abdominal pain or cramping, nausea, vomiting, diarrhea or constipation. Denies any dysuria. Patient was seen in the ER on 02/06/2018 for vaginal bleeding in , at that time she was 12 weeks gestation. She was diagnosed with a UTI and received antibiotics. She has had several follow-up appointments with Dr. Garnica, which have reportedly "gone well". Review of systems: As per history of present illness and below otherwise all systems reviewed and negative. Past medical history: As per history of present illness and as reviewed below otherwise noncontributory. Surgical history: As per history of present illness and as reviewed below otherwise noncontributory. Social history: No reported history of drug or alcohol abuse. Family history: As per history of present illness and as reviewed below otherwise noncontributory. Physical exam: General: Well-developed and well-nourished 27-year-old female. Alert and oriented. Nontoxic appearing and in no acute distress. HEENT: Atraumatic, normocephalic, pupils equal and reactive bilaterally, negative for conjunctival pallor or scleral icterus, mucous membranes moist, throat clear, neck supple, nontender, trachea midline. No drooling or trismus noted. No meningeal signs Lungs: Clear to auscultation, breath sounds equal bilaterally, chest nontender. Heart: S1S2, regular rate and rhythm without overt murmur Abdomen: Soft, nondistended, rounded due to , nontender. Negative for masses or hepatosplenomegaly. Negative for costovertebral tenderness. Pelvis: Stable nontender. Genitourinary: Deferred. Rectal: Deferred. Skin: Intact, warm, dry. No lesions or rashes noted. Extremities: Atraumatic, negative for cords or calf pain. Neurovascular unremarkable. Neuro: Awake, alert, oriented. Cranial nerves II through XII unremarkable. Cerebellum unremarkable. Motor and sensory unremarkable throughout. Exam nonfocal. Notes: Patient had a OB ultrasound on 02/06/2018, which showed viable twin IUP. A positive blood type. Quant HCG on 02/06/18 was 133, 696. Diagnostics: CBC, CMP, UA, OB Ultrasound Therapeutics: Declines Prescription: None Impression: Threatened Miscarriage Plan: 1. Please have vaginal rest until you are cleared by your OBGYN (no sex, tampons , etc...) 2. Tylenol as needed for pain management 3. You need a repeat quant HCG and follow up with Dr Garnica 03/08/2018. Please call their office tomorrow to inform them of your ER visit, as they may want to see you tomorrow. Return to the ED as needed and as discussed. Definitive disposition and diagnosis as appropriate pending reevaluation and review of above. (Anthony Mccallum) Dr. Grimes taking over patient care at 2200 hrs. I have been briefed on patient and have reviewed the labs as well as history. I personally examined patient and agree with the above. Ultrasound showed twin intrauterine gestation. Fetus A in cephalic presentation with regular cardiac activity. Fetus B in transverse lie with the head to the maternal left with regular cardiac activity. Normal appearance of the placentas and normal appearing volume of amniotic fluid. No signs of placental abruption. This was communicated to the patient and she is going to follow-up with her STENO TYPIST Dr. Garnica. (Erasto Grimes) - Related Data Allergies Allergy/AdvReac Type Severity Reaction Status Date / Time cat dander Allergy Hives Verified 03/06/18 20:35 dog dander Allergy Hives Verified 03/06/18 20:35 mold Allergy Hives Verified 03/06/18 20:35 pineapple Allergy Swelling Verified 03/06/18 20:35 Home Meds: Home Meds Albuterol [Ventolin HFA] 1 - 2 puff INH ASDIRECTED 01/03/18 [History] Fluticasone Propionate [Flonase] 1 spray NASBOTH DAILY 01/03/18 [History] Albuterol/Ipratropium [DuoNeb 3.0-0.5 MG/3 ML] 1 vial NEB ASDIRECTED 01/14/18 [ History] Budesonide/Formoterol Fumarate [Symbicort 160-4.5 Mcg Inhaler] 2 puff PO BID [History] Past Medical History - Past Health History Medical/Surgical History: Denies Medical/Surgical History HEENT History: Reports: None Cardiovascular History: Reports: None Respiratory History: Reports: Asthma Gastrointestinal History: Reports: None Genitourinary History: Reports: None STENO TYPIST History: Reports: 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 History: Reports: None Neurological History: Reports: None Psychiatric History: Reports: None Endocrine/Metabolic History: Reports: None Hematologic History: Reports: None Immunologic History: Reports: None Oncologic (Cancer) History: Reports: None Dermatologic History: Reports: None - Infectious Disease History Infectious Disease History: Reports: None - Past Surgical History Head Surgeries/Procedures: Reports: None HEENT Surgical History: Reports: Adenoidectomy, Tonsillectomy Cardiovascular Surgical History: Reports: None Respiratory Surgical History: Reports: None GI Surgical History: Reports: None Female Surgical History: Reports: None Endocrine Surgical History: Reports: None 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 Surgical History: Reports: None Oncologic Surgical History: Reports: None Dermatological Surgical History: Reports: None <Anthony Mccallum E - Last Filed: 03/06/18 21:20> Social & Family History - Family History Family Medical History: Noncontributory - Tobacco Use Smoking Status *Q: Never Smoker - Caffeine Use Caffeine Use: Reports: None Other Caffeine Use: 1 cup per day - Recreational Drug Use Recreational Drug Use: No <Anthony Mccallum E - Last Filed: 03/06/18 21:20> ED ROS GENERAL - Review of Systems Review Of Systems: ROS reveals no pertinent complaints other than HPI. <Anthony Mccallum E - Last Filed: 03/06/18 21:20> - Review of Systems Review Of Systems: ROS reveals no pertinent complaints other than HPI. <Erasto Grimes - Last Filed: 03/06/18 22:44> ED EXAM - Physical Exam Exam: See Below (See dictation) <Panna MariaAnthony hall - Last Filed: 03/06/18 21:20> - Physical Exam Exam: See Below <Erasto Grimes - Last Filed: 03/06/18 22:44> - Vital Signs Last Recorded V/S: Last Vital Signs Temp 97.5 F 03/06/18 20:35 Pulse 75 03/06/18 20:35 Resp 18 03/06/18 20:35 BP 106/73 03/06/18 20:35 Pulse Ox 98 03/06/18 20:35 - Orders/Labs/Meds Orders: Active Orders 24 hr Category Date Time Status OB Ltd 1 or More Fetus [US] Stat Exams 03/06/18 20:47 Taken CULTURE URINE [RM] Stat Lab 03/06/18 20:40 Received UA W/MICROSCOPIC [URIN] Stat Lab 03/06/18 20:40 Ordered Labs: Laboratory Tests 03/06/18 03/06/18 03/06/18 Range/Units 20:40 21:13 21:13 WBC 10.47 (4.0-11.0) K/uL RBC 3.51 L (4.30-5.90) M/uL Hgb 10.9 L (12.0-16.0) g/dL Hct 30.9 L (36.0-46.0) % MCV 88.0 (80.0-98.0) fL MCH 31.1 (27.0-32.0) pg MCHC 35.3 (31.0-37.0) g/dL RDW Std Deviation 45.0 (28.0-62.0) fl RDW Coeff of Amy 14 (11.0-15.0) % Plt Count 171 (150-400) K/uL MPV 7.80 (7.40-12.00) fL Neut % (Auto) 64.7 (48.0-80.0) % Lymph % (Auto) 25.9 (16.0-40.0) % [place] % (Auto) 8.1 (0.0-15.0) % Eos % (Auto) 1.1 (0.0-7.0) % Baso % (Auto) 0.2 (0.0-1.5) % Neut # (Auto) 6.8 H (1.4-5.7) K/uL Lymph # (Auto) 2.7 H (0.6-2.4) K/uL [place] # (Auto) 0.9 H (0.0-0.8) K/uL Eos # (Auto) 0.1 (0.0-0.7) K/uL Baso # (Auto) 0.0 (0.0-0.1) K/uL Nucleated RBC % 0.0 /100WBC Nucleated RBCs # 0 K/uL Sodium 135 L (136-145) mmol/L Potassium 3.3 L (3.5-5.1) mmol/L Chloride 102 (98-107) mmol/L Carbon Dioxide 23.6 (21.0-32.0) mmol/L BUN 6 L (7.0-18.0) mg/dL Creatinine 0.6 (0.6-1.0) mg/dL Est Cr Clr Drug Dosing TNP Estimated GFR (MDRD) > 60.0 ml/min Glucose 71 L (74-106) mg/dL Calcium 8.8 (8.5-10.1) mg/dL Total Bilirubin 0.2 (0.2-1.0) mg/dL AST 12 L (15-37) IU/L ALT 16 (14-63) IU/L Alkaline Phosphatase 45 L (46-116) U/L Total Protein 6.2 L (6.4-8.2) g/dL Albumin 2.9 L (3.4-5.0) g/dL Globulin 3.3 (2.0-3.5) g/dL Albumin/Globulin Ratio 0.9 L (1.3-2.8) HCG, Quant 08393.0 mIU/mL Urine Color YELLOW Urine Appearance CLEAR Urine pH 6.0 (5.0-8.0) Ur Specific [place] 1.015 (1.001-1.035) Urine Protein NEGATIVE (NEGATIVE) mg/dL Urine Glucose (UA) NEGATIVE (NEGATIVE) mg/dL Urine Ketones NEGATIVE (NEGATIVE) mg/dL Urine Occult Blood LARGE H (NEGATIVE) Urine Nitrite NEGATIVE (NEGATIVE) Urine Bilirubin NEGATIVE (NEGATIVE) Urine Urobilinogen 0.2 (<2.0) EU/dL Ur Leukocyte Esterase NEGATIVE (NEGATIVE) Urine RBC 20-35 (0-2/HPF) Urine WBC 2-4 (0-5/HPF) Ur Epithelial Cells OCCASIONAL (NONE-FEW) Amorphous Sediment FEW (NEGATIVE) Urine Bacteria FEW (NEGATIVE) Urine Mucus MODERATE (NONE-MOD) Departure <Anthony Mccallum - Last Filed: 03/06/18 21:20> - Departure Time of Disposition: 22:44 Condition: Good <Elian Grimesin - Last Filed: 03/06/18 22:44> - Departure Disposition: Home, Self-Care 01 Clinical Impression: Threatened - Discharge Information Instructions: Threatened Miscarriage, [id number] Referrals: PCP,None [Primary Care Provider] - Forms: ED Department Discharge Additional Instructions: The following information is given to patients seen in the emergency department who are being discharged to home. This information is to outline your options for follow-up care. We provide all patients seen in our emergency department with a follow-up referral. The need for follow-up, as well as the timing and circumstances, are variable depending upon the specifics of your emergency department visit. If you don't have a primary care physician on staff, we will provide you with a referral. We always advise you to contact your personal physician following an emergency department visit to inform them of the circumstance of the visit and for follow-up with them and/or the need for any referrals to a consulting specialist. The emergency department will also refer you to a specialist when appropriate. This referral assures that you have the opportunity for follow-up care with a specialist. All of these measure are taken in an effort to provide you with optimal care, which includes your follow-up. Under all circumstances we always encourage you to contact your private physician who remains a resource for coordinating your care. When calling for follow-up care, please make the office aware that this follow-up is from your recent emergency room visit. If for any reason you are refused follow-up, please contact the [facility] Emergency Department at and asked to speak to the emergency department charge nurse. [facility] Primary Care [address] [place] [address] [place] [id number] [facility] [address] [place] [id number] 1. Please have vaginal rest until you are cleared by your OBGYN (no sex, tampons , etc...) 2. Tylenol as needed for pain management 3. You may need a repeat quant HCG and follow up with Dr Garnica 03/08/2018 . Please call their office tomorrow to inform them of your ER visit, as they may want to see you tomorrow. Return to the ED as needed and as discussed.
[2018-03-06 21:59] LABS: CHLORIDE,CL 102 mmol/L (98-107); SODIUM,NA 135 mmol/L (136-145)
[2018-03-06 22:49] VITALS: BP 109/68
--- NOTE | 2018-03-07 10:23 | US ---
EXAM DATE: 03/06/18 PATIENT'S AGE: 27 Patient: BUSHRA FAUSTIN Facility: [facility], [place], [place] Site . Site : 1990 Study: US OB Pelvis [id number]/5/[id number] 10:08:50 PM Ordering Physician: Doctor Cobos Final Report: HISTORY: Vaginal bleeding. Twin gestation. COMPARISON: 02/06/2018 TECHNIQUE: Limited ultrasound examination of the is performed with transabdominal technique. FINDINGS: This is a twin intrauterine gestation. A well-defined membrane separates the gestations. Fetus A is seen in cephalic presentation with regular cardiac activity at 132 beats per minute. The placenta is posterior and is free of the cervical os. The lower margin of the placenta is located 2 centimeters from the cervical os. The placental grade is I and the amniotic fluid volume is normal. Fetus B is seen in transverse lie with the head to the maternal left presentation with regular cardiac activity at 144 beats per minute. The placenta is fundal and is free of the cervical os. The placental grade is I and the amniotic fluid volume is normal. IMPRESSION: TWIN INTRAUTERINE GESTATION FETUS A IN CEPHALIC PRESENTATION WITH REGULAR CARDIAC ACTIVITY. FETUS B IN TRANSVERSE LIE WITH THE HEAD TO THE MATERNAL LEFT WITH REGULAR CARDIAC ACTIVITY. NORMAL APPEARANCE OF THE PLACENTAS AND NORMAL APPEARING VOLUME OF AMNIOTIC FLUID. NO SIGN OF PLACENTAL ABRUPTION. Dictated by Erasmo Josue MD @ Mar 06 2018 10:11PM (Electronic Signature) Report Signed by Proxy. CECELIA
== END 2018-03-06 22:52 | disposition home or self-care (01) ==
LOC: MW.ED 20:23
DX: O20.0 Threatened abortion (principal); Z3A.12 12 weeks gestation of pregnancy
CPT/HCPCS: 36415; 76815; 76815-26; 80053; 81001; 84702; 85025; 87086; 99284-25

== ENCOUNTER 2018-08-22 10:39 | Emergency (ER) | payer MEDICAID ==
--- NOTE | 2018-08-22 11:16 | EDM.PDOC ---
ED HPI GENERAL MEDICAL PROBLEM - General Chief Complaint: Respiratory Problem Stated Complaint: COUCH CHEST PAIN Time Seen by Provider: 08/22/18 11:14 Source of Information: Reports: Patient History Limitations: Reports: No Limitations - History of Present Illness INITIAL COMMENTS - FREE TEXT/NARRATIVE: HISTORY AND PHYSICAL: History of present illness: Patient is a 27-year-old female here with complaint of cough 7 days. She states she has a history of asthma and is almost out of her Symbicort but was unable to get into her primary care provider for a month and is needing a refill. She states she believes that her asthma is flaring up due to allergies and she was at this time of the year. She reports she is having pain and tightness in her chest with coughing. She has been using her Symbicort twice daily and albuterol as needed. Denies fevers, chills, nausea, vomiting, diarrhea , abdominal pain, myalgias. Review of systems: As per history of present illness and below otherwise all systems reviewed and negative. Past medical history: As per history of present illness and as reviewed below otherwise noncontributory. Surgical history: As per history of present illness and as reviewed below otherwise noncontributory. Social history: No reported history of drug or alcohol abuse. Family history: As per history of present illness and as reviewed below otherwise noncontributory. Physical exam: General: Patient sitting comfortably in no acute distress and nontoxic appearing HEENT: Atraumatic, normocephalic, pupils reactive, negative for conjunctival pallor or scleral icterus, mucous membranes moist, throat clear, neck supple, nontender, trachea midline. No meningeal signs. Lungs: Clear to auscultation, breath sounds equal bilaterally, chest nontender. Heart: S1S2, regular, negative for clicks, rubs, or overt murmur. Abdomen: Soft, nondistended, nontender. Negative for masses or hepatosplenomegaly. Negative for costovertebral tenderness. Pelvis: Stable nontender. Genitourinary: Deferred. Rectal: Deferred. Extremities: Atraumatic, negative for cords or calf pain. Neurovascular unremarkable. Neuro: Awake, alert, oriented. Cranial nerves II through XII unremarkable. Cerebellum unremarkable. Motor and sensory unremarkable throughout. Exam nonfocal. Notes: Diagnostics: Influenza Denies chest x-ray Therapeutics: None Prescriptions: Symbicort Impression: Acute asthma exacerbation Plan: 1. Continue your inhalers as prescribed 2. Follow-up with primary care provider 3. Return to ED as needed as discussed Definitive disposition and diagnosis as appropriate pending reevaluation and review of above. Upper Back Pain Score (Numeric/FACES): 6 - Related Data Allergies Allergy/AdvReac Type Severity Reaction Status Date / Time cat dander Allergy Hives Verified 08/22/18 11:07 dog dander Allergy Hives Verified 08/22/18 11:07 mold Allergy Hives Verified 08/22/18 11:07 pineapple Allergy Swelling Verified 08/22/18 11:07 Home Meds: Home Meds Fluticasone Propionate [Flonase] 1 spray NASBOTH DAILY 01/03/18 [History] Budesonide/Formoterol Fumarate [Symbicort 160-4.5 Mcg Inhaler] 2 puff PO BID [History] Budesonide/Formoterol [Symbicort 160-4.5 MCG] 1 puff INH BID #1 inhaler [Rx] Cetirizine [ZyrTEC] 10 mg PO DAILY 08/22/18 [History] #103/Iron Fumarate/Fa [ ] 1 tab PO DAILY 08/22/18 [ History] Past Medical History - Past Health History Medical/Surgical History: Denies Medical/Surgical History HEENT History: Reports: None Cardiovascular History: Reports: None Respiratory History: Reports: Asthma Gastrointestinal History: Reports: None Genitourinary History: Reports: None 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 History: Reports: None Neurological History: Reports: None Psychiatric History: Reports: None Endocrine/Metabolic History: Reports: None Hematologic History: Reports: None Immunologic History: Reports: None Oncologic (Cancer) History: Reports: None Dermatologic History: Reports: None - Infectious Disease History Infectious Disease History: Reports: Chicken Pox - Past Surgical History Head Surgeries/Procedures: Reports: None HEENT Surgical History: Reports: Adenoidectomy, Tonsillectomy Cardiovascular Surgical History: Reports: None Respiratory Surgical History: Reports: None GI Surgical History: Reports: None Female Surgical History: Reports: None Endocrine Surgical History: Reports: None 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 Surgical History: Reports: None Oncologic Surgical History: Reports: None Dermatological Surgical History: Reports: None Social & Family History - Family History Family Medical History: Noncontributory - Tobacco Use Smoking Status *Q: Never Smoker - Caffeine Use Caffeine Use: Reports: None Other Caffeine Use: 1 cup per day - Recreational Drug Use Recreational Drug Use: No ED ROS GENERAL - Review of Systems Review Of Systems: ROS reveals no pertinent complaints other than HPI. ED EXAM, GENERAL - Physical Exam Exam: See Below (see dictation) Course - Vital Signs Last Recorded V/S: Last Vital Signs Temp 97.3 F 08/22/18 11:06 Pulse 90 08/22/18 11:06 Resp 18 08/22/18 11:06 BP 141/63 H 08/22/18 11:06 Pulse Ox 98 08/22/18 11:06 Departure - Departure Time of Disposition: 11:49 Disposition: Home, Self-Care 01 Condition: Good Clinical Impression: Asthma exacerbation - Discharge Information Prescriptions: Budesonide/Formoterol [Symbicort 160-4.5 MCG] 1 puff INH BID #1 inhaler Referrals: PCP,Unknown [Primary Care Provider] - Forms: ED Department Discharge Additional Instructions: The following information is given to patients seen in the emergency department who are being discharged to home. This information is to outline your options for follow-up care. We provide all patients seen in our emergency department with a follow-up referral. The need for follow-up, as well as the timing and circumstances, are variable depending upon the specifics of your emergency department visit. If you don't have a primary care physician on staff, we will provide you with a referral. We always advise you to contact your personal physician following an emergency department visit to inform them of the circumstance of the visit and for follow-up with them and/or the need for any referrals to a consulting specialist. The emergency department will also refer you to a specialist when appropriate. This referral assures that you have the opportunity for follow-up care with a specialist. All of these measure are taken in an effort to provide you with optimal care, which includes your follow-up. Under all circumstances we always encourage you to contact your private physician who remains a resource for coordinating your care. When calling for follow-up care, please make the office aware that this follow-up is from your recent emergency room visit. If for any reason you are refused follow-up, please contact the [facility] Emergency Department at and asked to speak to the emergency department charge nurse. [address] [address] 1. Continue your inhalers as prescribed 2. Follow-up with primary care provider 3. Return to ED as needed as discussed
[2018-08-22 17:53] VITALS: BP 118/70
== END 2018-08-22 12:12 | disposition home or self-care (01) ==
LOC: MW.ED 10:39
DX: J45.901 Unspecified asthma with (acute) exacerbation (principal); Z91.09 Other allergy status, other than to drugs and biological substances; Z91.018 Allergy to other foods; Z79.899 Other long term (current) drug therapy
CPT/HCPCS: 87804; 99283

== ENCOUNTER 2018-09-21 09:40 | Emergency (ER) | payer MEDICAID ==
[2018-09-21 10:06] VITALS: BP 126/79
--- NOTE | 2018-09-21 10:09 | EDM.PDOC ---
ED HPI GENERAL MEDICAL PROBLEM - General Chief Complaint: ENT Problem Stated Complaint: EAR PAIN AND HEARING LOSS Time Seen by Provider: 09/21/18 09:49 - History of Present Illness INITIAL COMMENTS - FREE TEXT/NARRATIVE: HISTORY AND PHYSICAL: History of present illness: Patient is a 27-year-old black female presents with bilateral ear pain she has history of seasonal allergies she denies fever chills nausea vomiting other complaints Review of systems: As per history of present illness and below otherwise all systems reviewed and negative. Past medical history: As per history of present illness and as reviewed below otherwise noncontributory. Surgical history: As per history of present illness and as reviewed below otherwise noncontributory. Social history: No reported history of drug or alcohol abuse. Family history: As per history of present illness and as reviewed below otherwise noncontributory. Physical exam: HEENT: Atraumatic, normocephalic, pupils reactive, negative for conjunctival pallor or scleral icterus, mucous membranes moist, throat clear, neck supple, nontender, trachea midline. TMs are injected bilaterally with absent light reflex Lungs: Clear to auscultation, breath sounds equal bilaterally, chest nontender. Heart: S1S2, regular, negative for clicks, rubs, or JVD. Abdomen: Soft, nondistended, nontender. Negative for masses or hepatosplenomegaly. Negative for costovertebral tenderness. Pelvis: Stable nontender. Genitourinary: Deferred. Rectal: Deferred. Extremities: Atraumatic, negative for cords or calf pain. Neurovascular unremarkable. Neuro: Awake, alert, oriented. Cranial nerves II through XII unremarkable. Cerebellum unremarkable. Motor and sensory unremarkable throughout. Exam nonfocal. Diagnostics: None Therapeutics: None Impression: #1 bilateral otitis media Definitive disposition and diagnosis as appropriate pending reevaluation and review of above. Bilateral Ears Pain Score (Numeric/FACES): 6 - Related Data Allergies Allergy/AdvReac Type Severity Reaction Status Date / Time cat dander Allergy Hives Verified 09/21/18 10:06 dog dander Allergy Hives Verified 09/21/18 10:06 mold Allergy Hives Verified 09/21/18 10:06 pineapple Allergy Swelling Verified 09/21/18 10:06 Home Meds: Home Meds Fluticasone Propionate [Flonase] 1 spray NASBOTH DAILY 01/03/18 [History] Budesonide/Formoterol [Symbicort 160-4.5 MCG] 1 puff INH BID #1 inhaler [Rx] Cetirizine [ZyrTEC] 10 mg PO DAILY 08/22/18 [History] Albuterol/Ipratropium [Combivent Respimat] 1 puff PO ASDIRECTED 09/21/18 [ History] Past Medical History - Past Health History Medical/Surgical History: Denies Medical/Surgical History HEENT History: Reports: None Cardiovascular History: Reports: None Respiratory History: Reports: Asthma Gastrointestinal History: Reports: None Genitourinary History: Reports: None 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 History: Reports: None Neurological History: Reports: None Psychiatric History: Reports: None Endocrine/Metabolic History: Reports: None Hematologic History: Reports: None Immunologic History: Reports: None Oncologic (Cancer) History: Reports: None Dermatologic History: Reports: None - Infectious Disease History Infectious Disease History: Reports: Chicken Pox - Past Surgical History Head Surgeries/Procedures: Reports: None HEENT Surgical History: Reports: Adenoidectomy, Tonsillectomy Cardiovascular Surgical History: Reports: None Respiratory Surgical History: Reports: None GI Surgical History: Reports: None Female Surgical History: Reports: None Endocrine Surgical History: Reports: None 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 Surgical History: Reports: None Oncologic Surgical History: Reports: None Dermatological Surgical History: Reports: None Social & Family History - Family History Family Medical History: Noncontributory - Caffeine Use Caffeine Use: Reports: None Other Caffeine Use: 1 cup per day ED ROS GENERAL - Review of Systems Review Of Systems: ROS reveals no pertinent complaints other than HPI. ED EXAM, GENERAL - Physical Exam Exam: See Below (See dictation) Course - Vital Signs Last Recorded V/S: Last Vital Signs Temp 36.2 C 09/21/18 10:04 Pulse 82 09/21/18 10:04 Resp 16 09/21/18 10:04 BP 126/79 09/21/18 10:04 Pulse Ox 98 09/21/18 10:04 Departure - Departure Time of Disposition: 10:09 Disposition: Home, Self-Care 01 Condition: Good Clinical Impression: Otitis media - Discharge Information Referrals: PCP,None [Primary Care Provider] - Additional Instructions: The following information is given to patients seen in the emergency department who are being discharged to home. This information is to outline your options for follow-up care. We provide all patients seen in our emergency department with a follow-up referral. The need for follow-up, as well as the timing and circumstances, are variable depending upon the specifics of your emergency department visit. If you don't have a primary care physician on staff, we will provide you with a referral. We always advise you to contact your personal physician following an emergency department visit to inform them of the circumstance of the visit and for follow-up with them and/or the need for any referrals to a consulting specialist. The emergency department will also refer you to a specialist when appropriate. This referral assures that you have the opportunity for followup care with a specialist. All of these measure are taken in an effort to provide you with optimal care, which includes your followup. Under all circumstances we always encourage you to contact your private physician who remains a resource for coordinating your care. When calling for followup care, please make the office aware that this follow-up is from your recent emergency room visit. If for any reason you are refused follow-up, please contact the [facility] emergency department at and asked to speak to the emergency department charge nurse. Keflex as prescribed Motrin/Tylenol as directed continue current medications follow-up private medical doctor as needed as discussed and return as needed as discussed
== END 2018-09-21 10:39 | disposition home or self-care (01) ==
LOC: MW.ED 09:40
DX: H66.93 Otitis media, unspecified, bilateral (principal); Z91.09 Other allergy status, other than to drugs and biological substances; Z91.018 Allergy to other foods; Z79.899 Other long term (current) drug therapy
CPT/HCPCS: 99282